=== PATIENT | female | born 1965 | race Caucasian/White ===

== ENCOUNTER 2020-09-24 17:25 | Outpatient (REF) | payer OTHER, SELFPAY ==
[2020-09-26 10:35] LABS: COVID-19 RT-PCR Result NEGATIVE (Negative)
== END 2020-09-24 17:45 ==
LOC: NCHCN 17:25
PROVIDERS: PCP Internal Medicine; Visit Provider Internal Medicine
DX: Z20.828 Contact with and (suspected) exposure to other viral communicable diseases (principal)
CPT/HCPCS: U0003

== ENCOUNTER 2021-10-07 01:23 | Outpatient (CLI) | payer OTHER, SELFPAY ==
[2021-10-07 11:48] LABS: Source Nasal/Nares
[2021-10-07 14:08] LABS: COVID-19 PCR Negative (Negative)
== END 2021-10-07 01:24 | disposition home or self-care (01) ==
PROVIDERS: PCP Internal Medicine; Visit Provider Surgery
DX: Z20.822 Contact with and (suspected) exposure to COVID-19 (principal); Z01.818 Encounter for other preprocedural examination
CPT/HCPCS: 87635

== ENCOUNTER 2021-11-23 16:57 | Outpatient (REF) | payer OTHER, SELFPAY ==
[2021-11-23 21:42] LABS: Abs Immature Grans 0.01 10^3/uL (0.0-0.06); Absolute Basophil Count 0.02 10^3/uL (0.0-0.2); Absolute Eosinophil Count 0.04 10^3/uL (0.0-0.7); Absolute Lymphocyte Count 2.27 10^3/uL (1.2-3.4); Absolute Monocyte Count 0.46 10^3/uL (0.1-0.8); Absolute Neutrophil Count 3.12 10^3/uL (1.2-6.7); Basophils % 0.3; Eosinophils % 0.7; HCT 37.8 % (36.0-46.0); HGB 12.6 g/dL (11.2-15.7); Immature Grans % 0.2; Lymphocytes % 38.3; MCH 30.4 pg (27.0-33.0); MCHC 33.3 % (32.0-36.0); MCV 91.3 fL (80-95); MPV 11.5 fL (8.0-11.0); Monocytes % 7.8; Neutrophils % 52.7; Nucleated RBC 0 %; Platelet Count 212 10^3/uL (130-400); RBC 4.14 10^6/uL (3.93-5.22); RDW 12.3 % (11.7-14.6); WBC 5.92 10^3/uL (4.4-10.8)
[2021-11-23 22:17] LABS: ALT 43 U/L (14-59); AST 23 U/L (15-37); Albumin 4.1 g/dL (3.4-5.0); Alkaline Phosphatase 83 U/L (46-116); Anion Gap 8.9 mmol/L (3-11); BUN 21 mg/dL (7-18); Bilirubin, Total 0.3 mg/dL (0.2-1.0); CO2 26.1 mmol/L (21.0-32.0); Chloride 106 mmol/L (98-107); Estimated GFR 57.15 (mL/min/1.73m2); Glucose 139 mg/dL (74-106); Potassium 3.6 mmol/L (3.5-5.1); Sodium 141 mmol/L (136-145); Total Protein 7.3 g/dL (6.4-8.2); Vitamin B12 500 pg/mL (193-986)
[2021-11-25 10:37] LABS: HIV-1/2 Ag & Ab Screen Negative (Negative)
[2021-11-25 13:36] LABS: Hepatitis C Ab w Rflx HCV PCR Negative (Negative)
== END 2021-11-23 16:58 | disposition home or self-care (01) ==
LOC: NCHCN 16:57
PROVIDERS: PCP Internal Medicine; Visit Provider Family Medicine
DX: Z11.4 Encounter for screening for human immunodeficiency virus [HIV] (principal); Z11.59 Encounter for screening for other viral diseases; N39.0 Urinary tract infection, site not specified; R41.3 Other amnesia
CPT/HCPCS: 80053; 86803; 87077; 87389; 82607; 84443; 85025; 87086; 87186

== ENCOUNTER 2022-03-10 15:33 | Outpatient (REF) | payer OTHER, SELFPAY ==
--- NOTE | 2022-03-10 15:30 | PAPFT_PTH ---
PATIENT: Jewell Schmid LOC: [facility] U#:[id number] AGE/SX: 56/F ROOM: RE03/10/[address]: Fernanda Flores DO : 1965 BED: DIS: 03/10/2022 SPEC #: [id number] RECD: 03/10/22 16:54 STATUS: ARTIE REQ #: [id number] CHECO: 03/10/22 15:[address]: Fernanda Flores DEPT: [facility] Cytology RECD BY: Maria Elena Baldwin ENTERED: 03/10/22 16:54 SP TYPE: PAPFT OTHR DR: Anshu Yadav Tissues: 1 - CX/ENDOCX FOR PAP SMEARS Procedures: PAP THIN PREP/[facility] Screening HPV DNA PROBE Comments: [id number] (HPV 16 & 18/45)
== END 2022-03-10 15:34 | disposition home or self-care (01) ==
LOC: LBN 15:33
PROVIDERS: PCP Internal Medicine; Visit Provider Obstetrics & Gynecology
DX: Z12.4 Encounter for screening for malignant neoplasm of cervix (principal); Z11.51 Encounter for screening for human papillomavirus (HPV); R87.810 Cervical high risk human papillomavirus (HPV) DNA test positive
CPT/HCPCS: 88142; 87624

== ENCOUNTER → 2022-04-07 00:13 | Outpatient (CLI) | payer OTHER, SELFPAY ==
--- OUTSIDE RECORDS SUMMARY | 2022-04-07 00:15 | XMS_ITS | Encounter Summary ---
:1965 Author Organization [facility] Address [address] [place] [address] Care Team Providers Name Role Phone Anshu Yadav MD Primary Care Provider Encounter Details Date Type Department Care Team Description 06/12/2019 Hospital Encounter [facility] - Unknown, Jannet dunn [facility] [phone] [place] [address] (Work) [place] [address] Social History Tobacco Use Types Packs/Day Years Used Date Never Smoker Smokeless Tobacco: Never Used Alcohol Use Standard Drinks/Week Comments Yes 0 (1 standard drink = 0.6 oz pure alcoho l) rare Alcohol Habits Answer Date Recorded How often do you have a drink containing alcohol? Not asked How many drinks containing alcohol do you have on a typical Not asked day when you are drinking? How often do you have six or more drinks on one occasion? No t asked Comment: rare 03/07/2018 Sex Assigned at Date Recorded Not on file documented as of this encounter Medications at Time of Discharge Medication Sig Dispensed Refills Start Date End Date venlafaxine (EFFEXOR-XR) Take 75 mg by mouth 0 03/25/2022 75 mg XR capsule daily. documented as of this encounter Discharge Disposition Disposition Code Departure Means Destination Home or Self Long Term documented in this encounter Plan of Treatment Not on filedocumented as of this encounter Visit Diagnoses Not on filedocumented in this encounter Care Teams Advisory Intern Relationship Specialty Start Date End Date Anshu Yadav MD PCP - General 01/11/18 03/24/22 [address] [place], [place] [id number] documented as of this encounter
--- OUTSIDE RECORDS SUMMARY | 2022-04-07 00:15 | XMS_ITS | Encounter Summary ---
:1965 Author Organization [facility] Address [address] [place] [address] Care Team Providers Name Role Phone Anshu Yadav MD Primary Care Provider Encounter Details Date Type Department Care Team Description 10/14/2020 Results Only [facility] - [facility] Joe Portillo MD Lab - Main [place] [address] [facility] [address] [place] [address] [place], [place] [address] [phone] Social History Tobacco Use Types Packs/Day Years [...] on file documented as of this encounter Plan of Treatment Not on filedocumented as of this encounter Procedures Procedure Name Priority Date/Time Associated Comments Diagnosis FLU/COVID AYSHA(FLUVID) Routine 10/14/2020 14:25 Re sults for this EST procedure are i n the results section. COMPLETE BLOOD COUNT Routine 10/14/2020 14:00 Res ults for this WITH DIFFERENTIAL EST procedure are in (AUTO) the results section. TROPONIN I Routine 10/14/2020 14:00 Results for this EST procedure are i n the results section. D-DIMER Routine 10/14/2020 14:00 Results for this EST procedure are i n the results section. MAGNESIUM Routine 10/14/2020 14:00 Results for this EST procedure are i n the results section. COMPREHENSIVE Routine 10/14/2020 14:00 Results fo r this METABOLIC PANEL (CMP) EST proced ure are in the results section. documented in this encounter Results FLU/COVID AYSHA(FLUVID) (10/14/2020 14:25 EST) [facility] SARS-CoV-2 RT-PCR Not Detected [facility] Comment: [facility] The 2019 novel coronavirus (SARS-CoV-2) target nucleic acids are not detected. INFLUENZA A PCR - Negative [facility] INFLUENZA B PCR - Negative [facility] RSV PCR - [facility] Negative [facility] Specimen Narrative [facility] - 021 15:26 EST FLUVID PATIENT STATUS: A [facility] 1 FLUVID Performing Organization Address City/[facility]/ZIP Code Phon e Number [facility] [address] [phone] TROPONIN I (10/14/2020 14:00 EST) [facility] Troponin I <0.034 0.000 - [facility] (ng/mL) Comment: 0.034 ng/mL [facility] Interpretation comments: ??Cutoff for a positive troponin result is set at the 99th percentile of the upper reference limit. ??Elevated troponin must always be interpreted in the context of the clinical presentation. ?Serial troponin testing 3-6 hr from baseline is fav ored over relying on a single troponin level. ?? The results of this assay can be falsely lowered d ue to the consumption of Biotin. Specimen Performing Organization Address City/[facility] Code Phon e Number [facility] [address] [phone] D-DIMER (10/14/2020 14:00 EST) [facility] D-Dimer <150 <230 ng/mLDDU [facility] Comment: [facility]ENTER [facility] CUTOFF VALUE FOR THE EXCLUSION OF DVT and PE: 230 ng/mL D-dimer units. Any use of the age-adjusted cutoff value is a post-jared lytic modification of this FDA-approved test and is consider ed off-label use of the test result. [facility] Laboratory do es not have literature to support the validity of an age-adju sted cutoff for our specific assay. Specimen Narrative [facility] - 021 14:32 EST AOT: 10/14/20 1421: DIMER Performing Organization Address [facility] Phon e Number [facility] [address] [place] [address] MAGNESIUM (10/14/2020 14:00 EST) Pathologist Sig nature Magnesium 1.70 1.7 - 2.8 mg/dL [facility] Specimen Performing Organization Address [facility] Phon e Number [facility] [address] [place] [address] (ABNORMAL) COMPREHENSIVE METABOLIC PANEL (CMP) (10/14/2020 14:00 EST) ALBUMIN - [facility] 4.4 3.4 - 4.9 [facility] g/dL [facility] ALKALINE 78 38 - 126 U/L [facility] PHOSPHATASE [facility] BILIRUBIN TOTAL 0.4 0.2 - 1.3 [facility] mg/dL [facility] BUN - [facility] 19 10 - 26 mg/dL [facility] CALCIUM - [facility] 9.4 8.5 - 10.5 [facility] mg/dL [facility] Chloride 104 96 - 110 [facility] mmol/L [facility] CO2 Total 30 22 - 32 mEq/L [facility] CREATININE 0.84 0.52 - 1.04 [facility] mg/dL [facility] eGFR >60 [facility] Comment: [facility] Chronic renal impairment is defined as GFR <60 Multiply result by 1.210 for patients . eGFR calculated using the IDMS-traceable MDRD Study Equation. ??(effective 07/06/2014) Anion Gap 9 0 - 18 [facility] GLUCOSE - [facility] 130 (H) 70 - 100 [facility] mg/dL [facility] Potassium 4.0 3.5 - 5.0 [facility] mEq/L [facility] Sodium 143 136 - 145 [facility] mEq/L [facility] TOTAL PROTEIN - 7.3 6.2 - 8.2 [facility] gm/dL [facility] SGOT/AST - [facility] 29 14 - 36 U/L [facility] SGPT/ALT - [facility] 29 0 - 35 U/L [facility] Specimen Performing Organization Address City/State/ZIP Code Phon e Number [facility] [address] [place] [address] (ABNORMAL) COMPLETE BLOOD COUNT WITH DIFFERENTIAL (AUTO) (10/14/2020 14:00 EST) Pathologist Sig nature ABSOLUTE NEUTROPHIL 2.2 2.2 - 8.85 [facility] COUN - [facility] 10e3/uL [facility] BASO # - [facility] 0.04 0.01 - 0.11 [facility] 10e/uL [facility] BASO % - [facility] 1 0 - 2 % [facility] EOS # - [facility] 0.06 0.03 - 0.61 [facility] 10e3/ul [facility] EOS % - [facility] 1 0 - 5 % [facility] GRAN % - [facility] 48.6 40 - 80 % [facility] HEMATOCRIT - [facility] 40.4 34.9 - 44.4 % [facility] HEMOGLOBIN - [facility] 13.5 11.6 - 15.2 [facility] g/dl [facility] IG# - [facility] 0.01 0 - 0.7 10e3/uL [facility] IG% - [facility] 0.2 0 - 0.9 % [facility] LYMPH # - [facility] 1.9 1.09 - 3.3 [facility] 10e3/ul [facility] LYMPH% - [facility] 42.8 (H) 20 - 40 % [facility] MEAN CORPUSCULAR HGB 30.5 26.7 - 33.3 pg [facility] ME D - CV [facility] MEAN CORPUSCULAR HGB 33.4 32.1 - 35.9 [facility] CONC - [facility] g/dL [facility] MEAN CELL VOLUME - 91.4 81 - 98 fl [facility] MONO # - [facility] 0.3 0.1 - 0.8 [facility] 10e3/uL [facility] [facility] MONO% - [facility] 6.2 0 - 12 % [facility] PLATELET COUNT 207 141 - 377 [facility] 10e3/ul [place] [facility] RED BLOOD COUNT - 4.42 3.86 - 5.04 [facility] 10e3/ul [place] RED CELL DISTRI WIDTH 12.3 <14.7 % [facility] WHITE BLOOD COUNT - 4.5 4.0 - 12.4 [facility] 10e3/ul [facility]ENTER LAB Specimen Performing Organization Address City/State/ZIP Code Phon e Number [facility] [address] [place] [address] documented in this encounter Visit Diagnoses Not on filedocumented in this encounter Care Teams Superintendent Board Mill Relationship Specialty Start Date End Date Anshu Yadav MD PCP - General 01/11/18 03/24/22 [address] [place] [address] documented as of this encounter
--- OUTSIDE RECORDS SUMMARY | 2022-04-07 00:15 | XMS_ITS | Encounter Summary ---
:1965 Author Organization [facility] Address [address] [place] [address] Care Team Providers Name Role Phone Vanessa Almeida MD Primary Care Provider Tracey Monson Primary Care Provider Vanessa Almeida MD Primary Care Provider Encounter Details Date Type Department Care Team Description 05/23/2004 Results Only [facility] - Delmy Romero NP conversion [address] [place] [address] Social History Tobacco Use Types Packs/Day Years Used Date Never Assessed Sex Assigned at Date Recorded Not on file documented as of this encounter Plan of Treatment Not on filedocumented as of this encounter Procedures Procedure Name Priority Date/Time Associated Diagnosis Comme nts CYTOPATHOLOGY Routine 05/23/2004 0:00 EDT Results for this procedure are i n the results section . documented in this encounter Results CYTOPATHOLOGY (05/23/2004 0:00 EDT) Pathology Report: CYTOPATHOLOGY REPORT [facility] Reports generated via electronic interface contain grabiel ginal data; however they are lacking the format of the original re port. Caution should be taken when reading/interpreting unfo rmatted reports. Name: ? CLAUDIO LARA ? Accession #: ? [id number] : ? 1965 (Age: 38) ??F ?Collect Date: ? 05/05 Location: ? [facility] ? Receive Date : ? 05/24/2004 Provider: ?DELMY CHAO AUTO VINYL TOP INSTALLER Copy to: ? Specimen/Source: ?ThinPrep Pap Test, Cervix/ Endocervix Last Menstrual Period: ? 05/06/04 Previous Gynecologic Pathology: ? LSIL: 11/04/02 HPV: 05/29/03 Infection History: ? Bacterial vaginosis ? SPECIMEN ADEQUACY ? Satisfactory for Evaluation - transformation zone component present GENERAL CATEGORIZATION ? Negative for Intraepithelial Lesion or Malignan cy INTERPRETATION ? Shift in ramirez present suggestive of bacterial vaginosis. ? Document reviewed and electronically signed by: ? URIAH Duarte(ASCP) ? Report Date: ??05/30/2004 11:19 End of Report Specimen Performing Organization Address City/State/ZIP Code Phon e Number [facility] [address] [place] [address] SERVICES [facility] [address] [place] [address] documented in this encounter Visit Diagnoses Not on filedocumented in this encounter Care Teams Brattice Builder Relationship Specialty Start Date End Date Vanessa Almeida MD PCP - General 05/14/09 08/24/15 [address] [place] [address] Tracey Monson FNP PCP - General 04/13/09 05/13/09 [address] [place] [address] Vanessa Almeida MD PCP - General 04/07/09 04/12/09 [address] [place] [address] documented as of this encounter
--- OUTSIDE RECORDS SUMMARY | 2022-04-07 00:15 | XMS_ITS | Encounter Summary ---
:1965 Author Organization [facility] Address [address] [place] [address] Care Team Providers Name Role Phone Vanessa Almeida MD Primary Care Provider Tracey Monson Primary Care Provider Vanessa Almeida MD Primary Care Provider Encounter Details Date Type Department Care Team Description 05/29/2003 Results Only [facility] - Cody Feng MD conversion [address] [place], [place] [phone] Social History Tobacco Use Types Packs/Day Years Used Date Never Assessed Sex Assigned at Date Recorded Not on file documented as of this encounter Plan of Treatment Not on filedocumented as of this encounter Procedures Procedure Name Priority Date/Time Associated Comments Diagnosis HPV DETECTION, HIGH Routine 05/29/2003 15:30 Resu lts for this RISK TYPES EDT procedure are i n the results section. CYTOPATHOLOGY Routine 05/29/2003 0:00 Results for this EDT procedure are i n the results section. documented in this encounter Results HUMAN PAPILLOMA VIRUS DNA TEST (05/29/2003 15:30 EDT) Specimen Description Cervix, ThinPrep [facility] Result Positive for one or more of HPV types 16,18,31,33,35,39,45,51,52,56,58,59, or 68. These [facility] Camacho KAPLNAEN high/intermediate risk HPV t ypes are associated with dysplasia and some cervical cancers. LAB Report Status Final [facility] [id number] [facility] Specimen Performing Organization Address City/State/ZIP Code Phon e Number [facility] [address] [place] [address] SERVICES [facility] [address] [place] [phone] CYTOPATHOLOGY (05/29/2003 0:00 EDT) Pathology Report: CYTOPATHOLOGY REPORT [facility] Reports generated via electronic interface contain grabiel ginal data; however they are lacking the format of the original re port. Caution should be taken when reading/interpreting unfo rmatted reports. Name: ? CLAUDIO LARA ? Accession #: ? [id number] : ? 1965 (Age: 37) ??F ?Collect Date: ? 05/05 Location: ? [facility] ? Receive Date : ? 06/02/2003 Provider: ?CODY BUENO MD Copy to: ? Specimen/Source: ?ThinPrep Pap Test, Cervix/ Endocervix Last Menstrual Period: ? 05/08/03 Previous Gynecologic Pathology: ? ASC-US: 11/03 Other: ? Additional clinical information: Dysmenorrhea HPVDX - HPV testing requested regardless of diag nosis on current ThinPrep Pap test. ? SPECIMEN ADEQUACY ? Satisfactory for Evaluation - transformation zone component present GENERAL CATEGORIZATION ? Negative for Intraepithelial Lesion or Malignan cy INTERPRETATION ? Reactive cellular ninfa nges associated with inflammation present (includes repair). ? Document reviewed and electronically signed by: ? Kelsie Vides MD ? Report Date: ??06/09/2003 16:25 End of Report Specimen Performing Organization Address City/State/ZIP Code Phon e Number [facility] [address] [place] [phone] SERVICES [facility] [address] [place] [address] documented in this encounter Visit Diagnoses Not on filedocumented in this encounter Care Teams Wet Process Miller Head Assistant Relationship Specialty Start Date End Date Vanessa Almeida MD PCP - General 05/14/09 08/24/15 [address] [place] [address] Tracey Monson FNP PCP - General 04/13/09 05/13/09 [address] [place] [address] Vanessa Almeida MD PCP - General 04/07/09 04/12/09 [address] [place] [address] documented as of this encounter
--- OUTSIDE RECORDS SUMMARY | 2022-04-07 00:15 | XMS_ITS | Encounter Summary ---
:1965 Author Organization [facility] Address [address] [place] [address] Care Team Providers Name Role Phone Vanessa Almeida MD Primary Care Provider Unknown, Provider Primary Care Provider Anshu Yadav MD Primary Care Provider Encounter Details Date Type Department Care Team Description 08/24/2015 Historical Results [facility] - Salvador Blackwell MD Only [facility] Radiology Resul ts [address] [facility] [address] [place] [phone] Social History Tobacco Use Types Packs/Day Years Used Date Never Assessed Sex Assigned at Date Recorded Not on file documented as of this encounter Plan of Treatment Not on filedocumented as of this encounter Procedures Procedure Name Priority Date/Time Associated Diagnosis Comme nts XR CHEST 2 VIEWS 08/24/2015 9:11 EST Resu lts for this procedure are i n the results section. documented in this encounter Results XR CHEST 2 VIEWS (08/24/2015 9:11 EST) Specimen Narrative [facility] RADI[facility] - 08/24/2015 9:15 EST ? EXAM: RADIOLOGY/CHEST (PA ?? LAT) ?EX. D/ (811) ? CLINICAL INFORMATION: ? CHEST PAIN ? Indication: Chest pain. Shortness of breath. ? Comparison: None. ? Technique: Sitting upright AP and lateral views. ? Findings: The cardiomediastinal s ilhouette and pulmonary vasculature ? are within normal limits. The mariza gs are clear. No pleural effusion or ? pneumothorax is seen. ? Impression: No acute process. ? REPORT SIGNED IN OTHER VENDOR SYSTEM 08/24/2015 ?Reported B y: Tino Gregory MD ? CC: ? Transcribed Date/Time: 08/24/2015 (914) ? Hydroelectric Plant Electrician: ? Printed Date/Time: 02/12/2019 (08 58) ? PAGE 1 ? Nuvia d Report ? Procedure Note Tino Gregory MD - 07/09/2019 EXAM: RADIOLOGY/CHEST (PA LAT) EX. D/ (811) CLINICAL INFORMATION: CHEST PAIN Indication: Chest pain. Shortness of br eath. Comparison: None. Technique: Sitting upright AP and later al views. Findings: The cardiomediastinal silhoue tte and pulmonary vasculature are within normal limits. The lungs are clear. No pleural effusion or pneumothorax is seen. Impression: No acute process. REPORT SIGNED IN OTHER VENDOR SYSTEM 08/24/2015 Reported By: Tino Gregory MD CC: Transcribed Date/Time: 08/24/2015 (914 ) Hydroelectric Plant Electrician: Printed Date/Time: 02/12/2019 (7658) PAGE 1 Signed Report Performing Organization Address City/State/ZIP Code Phon e Number [facility] documented in this encounter Visit Diagnoses Not on filedocumented in this encounter Care Teams Breaker Mechanic Relationship Specialty Start Date End Date Vanessa Almeida MD PCP - General 05/14/09 08/24/15 [address] [place] [address] Unknown, MD Anna PCP - General 08/25/15 01/10/18 Anshu Yadav MD PCP - General 01/11/18 03/24/22 [address] [place] [address] documented as of this encounter
--- OUTSIDE RECORDS SUMMARY | 2022-04-07 00:15 | XMS_ITS | Encounter Summary ---
:1965 Author Organization [facility] Address [address] [place] [address] Care Team Providers Name Role Phone Vanessa Almeida MD Primary Care Provider Encounter Details Date Type Department Care Team Description 08/24/2015 Hospital Encounter [facility] - Unknown, Jannet dunn [facility] [phone] [place] [address] (Work) [place] [address] Social History Tobacco Use Types Packs/Day Years Used Date Never Assessed Sex Assigned at Date Recorded Not on file documented as of this encounter Discharge Disposition Disposition Code Departure Means Destination Home or Self Alf documented in this encounter Plan of Treatment Not on filedocumented as of this encounter Visit Diagnoses Not on filedocumented in this encounter Care Teams High School Professional Relationship Specialty Start Date End Date Vanessa Almeida MD PCP - General 05/14/09 08/24/15 [address] [place] [address] documented as of this encounter
--- OUTSIDE RECORDS SUMMARY | 2022-04-07 00:15 | XMS_ITS | Encounter Summary ---
:1965 Author Organization [facility] Address [address] [place] [address] Care Team Providers Name Role Phone Unknown, Provider Primary Care Provider Anshu Yadav MD Primary Care Provider Encounter Details Date Type Department Care Team Description 01/10/2018 Results Only [facility] Elayne Donald MD [phone] [address] [facility] [address] [place] [address] (Wo rk) Social History Tobacco Use Types Packs/Day Years Used Date Never Assessed Sex Assigned at Date Recorded Not on file documented as of this encounter Plan of Treatment Not on filedocumented as of this encounter Procedures Procedure Name Priority Date/Time Associated Diagnosis Comme nts PAP TEST- RESULT Routine 01/10/2018 0:00 EDT Resu lts for this ONLY procedure are i n the results section. documented in this encounter Results PAP TEST- RESULT ONLY (01/10/2018 0:00 EDT) Pathology Report: CYTOPATHOLOGY REPORT [facility] Reports generated via electronic interface contain grabiel ginal data; SERVICES however they are lacking the format of the original re port. Caution should be taken when reading/interpreting unfo rmatted reports. Name: ? CLAUDIO SCHMID ? Accession #: ? [id number] ? : ? 1965 (Age: 52) ??F ?Collect Date: ? 01/10/2018 ? Location: ? [facility] ? Receive Date: ? 01/12/20 18 ? Provider: ELAYNE DONALD MD Copy to: ANSHU YADAV MD ? Final Report SPECIMEN ADEQUACY ? Satisfactory for Evaluation - transformation zone component present GENERAL CATEGORIZATION ? Negative for Intraepithelial Lesion or Malignan cy ?? Menstrual/ Status: ??Post Menopausal Infection History: Pos for HPV Specimen/Source: ??Pap Test, Cervix, ThinPrep Imaging System with manual evaluation Document reviewed and electronically signed by: ? URIAH Child(ASCP) ? Report ??Date: 01/18/2018 16:56 HPV with Pap Test ? Date Ordered: ? 01/18/2018 ? Status: ?? Signed Out ?Date Complete: ? 01/22/2018 ? By: ??Sy stem Interface ? Date Reported: ? 01/22/2018 ? Interpretation RESULT: POSITIVE FOR HIGH OR INTERMEDIATE RISK HPV. E6 OR E7 mRNA from one or more types of HPV types 16,1 8,31, 33,35,39,45,51,52,56,58,59,66, and 68 is detected by cork tipper mediated amplification. High and intermediate risk HPV types are associated wi th most squamous intraepithelial lesions and cervical can cers. Comments Document reviewed and electronically signed by: ? System Interface ? Report date: 01/22/2018 By the signature above, the attending physician certif ies that he/she has personally conducted a gross and/or microscopic examin ation of the described specimens and rendered or confirmed the above diagnosi s. End of Report Specimen Performing Organization Address City/State/ZIP Code Phon e Number [facility] [address] [place] [address] SERVICES documented in this encounter Visit Diagnoses Not on filedocumented in this encounter Care Teams Scaffold Erector Relationship Specialty Start Date End Date Unknown, Provider, PCP - General 08/25/15 01/10/18 Anshu Yadav MD PCP - General 01/11/18 03/24/22 [address] [place], [place] [phone] documented as of this encounter
--- OUTSIDE RECORDS SUMMARY | 2022-04-07 00:15 | XMS_ITS | Encounter Summary ---
:1965 Author Organization [facility] Address [address] [place] [address] Care Team Providers Name Role Phone Anshu Yadav MD Primary Care Provider Perez Larkin MD Primary Care Provider Encounter Details Date Type Department Care Team Description 09/24/2020 Lab Requisition [facility] Outr Resulting Lab, Pathology & Laboratory Provider [facility] [address] [place], [place] [id number] Social History Tobacco Use Types Packs/Day Years [...] Procedure Name Priority Date/Time Associated Comments Diagnosis DO NOT ORDER Today 09/24/2020 10:30 Results for this STANDALONE - BROAD EST procedure are in COVID TEST the results section. COVID-19 TESTING Routine 09/24/2020 10:30 Results for this EST procedure are i n the results section. documented in this encounter Results DO NOT ORDER STANDALONE - BROAD COVID TEST (09/24/2020 10:30 EST) COVID-19 rt-PCR NEGATIVE Negative [facility] Result Comment: LABORATORY 2019-novel Coronavirus (2019 -nCoV) not detected by the qRT-PCR assay. Consider testing for other respiratory viruses or re-collecting for 2019-nCoV testing. Note: Optimum timing for peak viral levels du ring infections caused by 20 -nCoV have not been determined. Collection of multiple specimens from the same patient may be necessary to detect the virus. Limitations Positive results are indicat von of active infection with SARS-CoV-2 but do not rule out bacterial infection or co-infection with other viruses. The agent detected may not be the definite cause of diseas e. In addition, detection of viral RNA may not indicate the presence of infectious virus or that SARS-CoV-2 is the causative agent for clinical symptoms. Negative results do not prec lude SARS-CoV-2 infection and should not be used as the sole basis for patient management decisions. Negative results must be combined with clinical observations, patient his tory, and epidemiological in formation. False negative results may also occur if amplification inhibitors are present in the specimen or if inadequate numbers of organisms are present in the specimen. Op timum specimen types and fabiola ing for peak viral levels during infections caused by SARS-CoV-2 have not been fully determined. Collection of multiple specimens (types and time points) from the same patient may be necessary to detect the virus. The test was validated for u with upper respiratory specimens obtained via nasopharyngeal or oropharyngeal swabs in VTM, UTM, M4, M5, M6, saline, and MTM media. The performance of this test has not be en established for other spe cimens. Specimens collected using other FDA recommended Specimen Collection Materials listed in the FDA COVID-19 [employer] communication (November 27, 2019) are pr ocessed with the caveat that they were not all validated for use with this test and the result must be interpreted in this context. Furthermore, a false negative results may occur if a specimen is improperly collected, transported or handled. If the virus mutates in the RT-PCR target region, SARS-CoV-2 may not be detected or may be detected less predictably. Inhibitors or other types of interference may produce a false negative result. An interference study evaluating the effect of common cold medications was not performed. This test is not FDA-cleared but its performance characteristics were established by our CLIA-certified, CAP-accredited, high complexity laboratory in accordance with CLIA regulations, [employer] of [employer] (CAP) guidel darryl (Nov 20, 2019), and FDA guidance (Nov 01, 2019). This test is only for use un mona the Food and Drug Administration's Emergency Use Authorization. Specimen Swab - Entire nasopharynx (body structur e) Performing Organization Address City/State/ZIP Code Phon e Number [facility] [place], [place] COVID-19 TESTING (09/24/2020 10:30 EST) COVID-19 rt-PCR NEGATIVE Negative [facility] Result Comment: LABORATORY 2019-novel Coronavirus (2019 -nCoV) not detected by the qRT-PCR assay. Consider testing for other respiratory viruses or re-collecting for 2019-nCoV testing. Note: Optimum timing for peak viral levels du ring infections caused by 20 -nCoV have not been determined. Collection of multiple specimens from the same patient may be necessary to detect the virus. Limitations Positive results are indicat von of active infection with SARS-CoV-2 but do not rule out bacterial infection or co-infection with other viruses. The agent detected may not be the definite cause of diseas e. In addition, detection of viral RNA may not indicate the presence of infectious virus or that SARS-CoV-2 is the causative agent for clinical symptoms. Negative results do not prec lude SARS-CoV-2 infection and should not be used as the sole basis for patient management decisions. Negative results must be combined with clinical observations, patient his tory, and epidemiological in formation. False negative results may also occur if amplification inhibitors are present in the specimen or if inadequate numbers of organisms are present in the specimen. Op timum specimen types and fabiola ing for peak viral levels during infections caused by SARS-CoV-2 have not been fully determined. Collection of multiple specimens (types and time points) from the same patient may be necessary to detect the virus. The test was validated for u se with upper respiratory specimens obtained via nasopharyngeal or oropharyngeal swabs in VTM, UTM, M4, M5, M6, saline, and MTM media. The performance of this test has not be en established for other spe cimens. Specimens collected using other FDA recommended Specimen Collection Materials listed in the FDA COVID-19 [employer] communication (November 27, 2019) are pr ocessed with the caveat that they were not all validated for use with this test and the result must be interpreted in this context. Furthermore, a false negative results may occur if a specimen is improperly collected, transported or handled. If the virus mutates in the RT-PCR target region, SARS-CoV-2 may not be detected or may be detected less predictably. Inhibitors or other types of interference may produce a false negative result. An interference study evaluating the effect of common cold medications was not performed. This test is not FDA-cleared but its performance characteristics were established by our CLIA-certified, CAP-accredited, high complexity laboratory in accordance with CLIA regulations, [employer] of [employer] an [employer]ologists (CAP) guidel darryl (Nov 20, 2019), and FDA guidance (Nov 01, 2019). This test is only for use un mona the Food and Drug Administration's Emergency Use Authorization. Performing Lab [facility] Specimen Swab Performing Organization Address City/State/ZIP Code Phon e Number [facility] [address] [place] [address] SERVICES [facility] [place], [place] documented in this encounter Visit Diagnoses Not on filedocumented in this encounter Care Teams Instructional Technology Instructor Relationship Specialty Start Date End Date Anshu Yadav MD PCP - General 01/11/18 03/24/[address] [place] [id number] Perez Larkin MD PCP - General Emergency Medicine 03/25/[address] [place] [address] documented as of this encounter
--- OUTSIDE RECORDS SUMMARY | 2022-04-07 00:15 | XMS_ITS | Encounter Summary ---
:1965 Author Organization [facility] Address [address] [place] [address] Care Team Providers Name Role Phone Anshu Yadav MD Primary Care Provider Encounter Details Date Type Department Care Team Description 03/05/[address] [facility] ENT - Anshu Yadav MD [place] [address] [place] [address] [place] [address] [phone] Social History Tobacco Use Types Packs/Day Years Used Date Never Assessed Sex Assigned at Date Recorded Not on file documented as of this encounter Plan of Treatment Not on filedocumented as of this encounter Visit Diagnoses Not on filedocumented in this encounter Historical Medications This list may reflect changes made after this encounter. Medication Sig Dispensed Refills Start Date End Date venlafaxine (EFFEXOR-XR) Take 75 mg by mouth 0 03/25/2022 75 mg XR capsule daily. added in this encounter Care Teams Content Designer Relationship Specialty Start Date End Date Anshu Yadav MD PCP - General 01/11/18 03/24/22 [address] [place], [place] [phone] documented as of this encounter
--- OUTSIDE RECORDS SUMMARY | 2022-04-07 00:15 | XMS_ITS | Encounter Summary ---
:1965 Author Organization [facility] Address [address] [place] [address] Care Team Providers Name Role Phone Anshu Yadav MD Primary Care Provider Encounter Details Date Type Department Care Team Description 03/14/2018 Hospital Encounter [facility] - Unknown, Jannet dunn [facility] [phone] [place] [address] (Work) [place] [address] Social History Tobacco Use Types Packs/Day Years [...] Code Departure Means Destination Home or Self [facility] documented in this encounter Plan of Treatment Not on filedocumented as of this encounter Visit Diagnoses Not on filedocumented in this encounter Care Teams Poured Pipe Maker Relationship Specialty Start Date End Date Anshu Yadav MD PCP - General 01/11/18 03/24/22 [address] [place], [place] [phone] documented as of this encounter
--- OUTSIDE RECORDS SUMMARY | 2022-04-07 00:15 | XMS_ITS | Encounter Summary ---
:1965 Author Organization [facility] Address [address] [place] [address] Care Team Providers Name Role Phone Anshu Yadav MD Primary Care Provider Perez Larkin MD Primary Care Provider Encounter Details Date Type Department Care Team Description 09/07/2020 Results Only Imaging [facility] - Perez Larkin MD [facility] Radiology Resul ts [address] [place] [address] [place], [place] [id number] Social History Tobacco Use Types Packs/Day Years [...] Priority Date/Time Associated Diagnosis Comme nts XR RIBS RIGHT WITH 09/07/2020 20:58 Resul ts for this PA CHEST EST procedure are i n the results section. documented in this encounter Results XR RIBS RIGHT WITH PA CHEST (09/07/2020 20:58 EST) Specimen Narrative [facility] - 09/07/2020 20:58 EST ? EXAM: RADIOLOGY/RIBS RT 3V W/ PA CHEST ?EX. D/ (1621) ? CLINICAL INFORMATION: ? R07.81 RIB PAIN, RIGHT SIDE ? PROCEDURE INFORMATION: ? Exam: XR Right Ribs with PA Chest , 3 Views ? Exam date and time: 09/07/2020 4:21 PM ? Age: 55 years old ? Clinical indication: R07.81 rib p ain, right side ? TECHNIQUE: ? Imaging protocol: XR Right ribs 3 views with PA chest. ? COMPARISON: ? CR ([id number], CHEST, CHEST PA) 1 2:25 PM ? FINDINGS: ? Lungs: Clear lungs. ? Pleural space: No pneumothorax. N o sizable pleural effusion. ? Heart/Mediastinum: No cardiomegal y. ? Bones/joints: No acute rib fractu re. ? IMPRESSION: ? 1. Clear lungs. ? 2. No acute rib fracture. ? REPORT SIGNED IN OTHER VENDOR SYSTEM 09/07/2020 ?Reported B y: Casandra Joaquin MD ? CC: ? Transcribed Date/Time: 09/07/2020 (2057) ? [employer] Hrms Developer: ? Printed Date/Time: 09/07/2020 () ? PAGE 1 ? Nuvia d Report ? Procedure Note Jemal Guajardo MD - 09/07/2020 EXAM: RADIOLOGY/RIBS RT 3V W/ PA CHEST EX. D/ (1621) CLINICAL INFORMATION: R07.81 RIB PAIN, RIGHT SIDE PROCEDURE INFORMATION: Exam: XR Right Ribs with PA Chest, 3 Vi ews Exam date and time: 09/07/2020 4:21 PM Age: 55 years old Clinical indication: R07.81 rib pain, r ight side TECHNIQUE: Imaging protocol: XR Right ribs 3 views with PA chest. COMPARISON: CR ([id number], CHEST, CHEST PA) 019 2:25 PM FINDINGS: Lungs: Clear lungs. Pleural space: No pneumothorax. No siza ble pleural effusion. Heart/Mediastinum: No cardiomegaly. Bones/joints: No acute rib fracture. IMPRESSION: 1. Clear lungs. 2. No acute rib fracture. REPORT SIGNED IN OTHER VENDOR SYSTEM 09/07/2020 Reported By: Casandra Joaquin MD CC: Transcribed Date/Time: 09/07/2020 (2057 ) [employer] Hrms Developer: Printed Date/Time: 09/07/2020 (2057) PAGE 1 Signed Report Performing Organization Address City/State/ZIP Code Phon e Number [facility] documented in this encounter Visit Diagnoses Not on filedocumented in this encounter Care Teams It Technical Specialist Relationship Specialty Start Date End Date Anshu Yadav MD PCP - General 01/11/18 03/24/[address] [place] [id number] Perez Larkin MD PCP - General Emergency Medicine 03/25/[address] [place] [address] documented as of this encounter
--- OUTSIDE RECORDS SUMMARY | 2022-04-07 00:15 | XMS_ITS | Encounter Summary ---
:1965 Author Organization [facility] Address [address] [place] [address] Care Team Providers Name Role Phone Vanessa Almeida MD Primary Care Provider Tracey Monson Primary Care Provider Vanessa Almeida MD Primary Care Provider Encounter Details Date Type Department Care Team Description 05/01/2006 Results Only [facility] - Jocelyn Jarrell od, ITZEL Nunez [address] [place] [phone] (Wo rk) Social History Tobacco Use Types Packs/Day Years Used Date Never Assessed Sex Assigned at Date Recorded Not on file documented as of this encounter Plan of Treatment Not on filedocumented as of this encounter Procedures Procedure Name Priority Date/Time Associated Diagnosis Comme nts CYTOPATHOLOGY Routine 05/01/2006 0:00 EDT Results for this procedure are i n the results section . documented in this encounter Results CYTOPATHOLOGY (05/01/2006 0:00 EDT) Pathology Report: CYTOPATHOLOGY REPORT [facility] Reports generated via electronic interface contain grabiel ginal data; however they are lacking the format of the original re port. Caution should be taken when reading/interpreting unfo rmatted reports. Name: ? CLAUDIO LARA ? Accession #: ? [id number] : ? 1965 (Age: 40) ??F ?Collect Date: ? 04/04 Location: ? [facility] ? Receive Date : ? 05/02/2006 Provider: ?ÁNGELA LEON WINE STEWARD/STEWARDESS Copy to: ? Specimen/Source: ? ThinPrep Pap Test, Cervix/Endocervix, processed on [employer] ThinPrep Imaging System, with manual evaluation Last Menstrual Period: ? 03/23/06 Previous Gynecologic Pathology: ? LSIL: 11/04/02 HPV: 05/29/03 Other: ? HPVA - HPV testing requested if ASC-US on the current ThinPrep Pap test. ? SPECIMEN ADEQUACY ? Satisfactory for Evaluation - transformation zone component present GENERAL CATEGORIZATION ? Negative for Intraepithelial Lesion or Malignan cy INTERPRETATION ? Reactive cellular ninfa nges associated with inflammation present (includes repair). ? Document reviewed and electronically signed by: ? RICARDO PETIT MD [facility] ? Report Date: ??05/04/2006 17:48 End of Report Specimen Performing Organization Address City/State/ZIP Code Phon e Number [facility] [address] [place] [address] SERVICES [facility] [address] [place] [address] documented in this encounter Visit Diagnoses Not on filedocumented in this encounter Care Teams Flue Lining Dipper Relationship Specialty Start Date End Date Vanessa Almeida MD PCP - General 05/14/09 08/24/15 [address] [place] [phone] Tracey Monson FNP PCP - General 04/13/09 05/13/09 [address] [place] [address] Vanessa Almeida MD PCP - General 04/07/09 04/12/09 [address] [place] [address] documented as of this encounter
--- OUTSIDE RECORDS SUMMARY | 2022-04-07 00:15 | XMS_ITS | Encounter Summary ---
:1965 Author Organization [facility] Address [address] [place] [address] Care Team Providers Name Role Phone Perez Larkin MD Primary Care Provider Reason for Visit Reason Comments Ear Problem bilateral clogged ears Encounter Details Date Type Department Care Team Description 03/25/2022 Walk-In [facility] - [facility] Denver Woo, Bilateral impacted cerumen (Primary Dx); [facility] PA-C Encounter for vaccination [address] [place] [address] [phone] [place] [address] Social History Tobacco Use Types Packs/Day Years [...] on file documented as of this encounter Last Filed Vital Signs Vital Sign Reading Time Taken Comments Blood Pressure 129/77 03/25/2022 1150 EDT Pulse 68 03/25/2022 1150 EDT Temperature 36.8 ??C (98.3 ??F) 03/25/2022 1150 EDT Respiratory Rate 16 03/25/2022 1150 EDT Oxygen Saturation 99% 03/25/2022 1150 EDT Inhaled Oxygen Concentration - - Weight - - Height - - Body Mass Index - - documented in this encounter Patient Instructions Patient InstructionsDenver Woo PA-C - 03/25/2022 12:15 EDT Images from the original note were not included. You still had a bit of earwax in your ears. Unfortunately your ears did not appear irritated from earlier flushing today. I think trying to flush again or attempting to disimpact manualy would cause more discomfort than it is worth. I would recommend picking up a product called Debrox. This can softenand dissolve earwax blockages. You can use this twice a day for about 4 days. If your ears still remain problematic after using the Debrox we could reattempt earwax removal again. [facility] Patient Instructions Earwax Blockage: Care Instructions Your Care Instructions Earwax is a natural substance that protects the ear canal. Normally, earwax drains from the ears anddoes not cause problems. Sometimes earwax builds up and hardens. Earwax blockage (also called cerumen impaction) can cause some loss of hearing and pain. When wax is tightly packed, you will need to have your doctor remove it. Follow-up care is a miranda part of your treatment and safety. Be sure to make and go to all appointments, and call your doctor if you are having problems. It's also a good idea to know your test results and keep a list of the medicines you take. How can you care for yourself at home? ?? Do not try to remove earwax with cotton swabs, fingers, or other objects. This can make the blockage worse and damage the eardrum. ?? If your doctor recommends that you try to remove earwax at home: ? Soften and loosen the earwax with warm mineral oil. You also can try hydrogen peroxide mixed with an equal amount of room temperature water. Place 2 drops of the fluid, warmed to body temperature, inthe ear two times a day for up to 5 days. ? Once the wax is loose and soft, all that is usually needed to remove it from the ear canal is a gentle, warm shower. Direct the water into the ear, then tip your head to let the earwax drain out. Dryyour ear thoroughly with a behavioral sciences department chair set on low. Hold the dryer several inches from your ear. ? If the warm mineral oil and shower do not work, use an [id number] wax softener. Read and follow all instructions on the label. After using the wax softener, use an ear syringe to gently flush the ear. Make sure the flushing solution is body temperature. Cool or hot fluids in the ear can cause dizziness. When should you call for help? Call your doctor now or seek immediate medical care if: ? Pus or blood drains from your ear. ? Your ears are ringing or feel full. ? You have a loss of hearing. Watch closely for changes in your health, and be sure to contact your doctor if: ? You have pain or reduced hearing after 1 week of home treatment. ? You have any new symptoms, such as nausea or balance problems. Where can you learn more? Go to https://[email or web address] Language Services.GameLayers/Gewara or log into your [employer] account at [email or web address].[email or web address] Enter Q495 in the search box to learn more about Earwax Blockage: Care Instructions. Current as of: March 03, 2021?Content Version: 13.2 ?? 5019-1756 kingsky. Care instructions adapted under license by [facility]. If you have questions about a medical condition or this instruction, always ask your healthcare professional. kingsky disclaims any warranty or liability for your use of this information. documented in this encounter Progress Notes Denver Woo PA-C - 03/25/2022 1215 EDT [facility] Express Care Chief Complaint(s): Chief Complaint Patient presents with ??? Ear Problem bilateral clogged ears Assessment & Plan: 1. Bilateral impacted cerumen 2. Encounter for vaccination TDAP VACCINE =>7YO IM Nursing staff installed hydrogen peroxide solution and subsequently attempted ear lavage. Only modest amount of cerumen was removed. After procedure she was examined by provider. Left TM was now visible, a scant amount of cerumen remained in external auditory meatus. TM intact, no irritation or erythema. Right TM remained occluded. She did have some mild erythema and pinpoint bleeding in R ear canal.Discussed with patient continuing to reduce cerumen impaction or trying Debrox at home. Recommended the latter as I felt given irritation in right ear further work today would be counterproductive. Patient was in agreement. Recommended Debrox and give instructions for use. She will scrap picker OTC. If earstill clogged after completion of therapy will attempt to remove earwax again. Tetanus vaccine was provided per request. New Prescriptions No medications on file HPI: Patient presents with sensation of ears being clogged bilaterally. Mild sensation of disequilibrium.No pain or discharge. Denies frequent use of cotton swabs or putting other objects in ears. She would also like Tdap vaccination as her last one was over 10 years ago. ROS: Review of Systems HENT: Negative for ear discharge and ear pain. Objective: Vitals and nursing notes reviewed Examination: BP 129/77 (BP Cuff Location: Right arm, BP Patient Position: Sitting, BP Cuff Sizes: Adult, small) Pulse 68 Temp 36.8 ??C (98.3 ??F) (Oral) Resp 16 SpO2 99% Physical Exam Constitutional: General: She is not in acute distress. HENT: Right Ear: External ear normal. Left Ear: External ear normal. Ears: Comments: No pain with manipulation of external ear or palpation over tragus bilateral Neurological: Mental Status: She is alert. Data reviewed with patient (current and past results): Problem list, medication, allergy list reviewed This note may be in part documented using voice dictation software. Please forgive any errors or omissions that may result from use of dictation. Eleni Edwards RN - 03/25/2022 1215 EDT Ceruminosis is noted. Some wax is removed by syringing, warm water and hydrogen peroxide. Patient tolerated well. Home guidance on wax removal given. Patient verbalized understanding. Beth Smith RN - 03/25/2022 1215 EDT Opthalmic Tech administered Tdap vaccine IM in L deltoid as per provider order. Pt tolerated well with no issues. Pt given VIS. Observed for 15 mins after injection. BETH SPENCER RN. 03/25/22 14:15 leni Smith RN - 03/25/2022 1215 EDT CC/HPI: Bilateral clogged ears. No pain. Brigid is worse than right. 200 mg ibuprofen this morning at 7 am Covid Screening: In the last 72 hours, has the patient had: New or unusual cough, shortness of breath, new nasal congestion, sore throat, fever, chills, body aches, or new loss of taste or smell without a reasonable alternative diagnosis*? (If yes, assign to ARC)- no In the past 10 days, has the patient had a positive Covid test OR a confirmed close Covid exposure (<6ft for > 15mins in 24hr period)? (if yes, assign to ARC, regardless of vaccination status)- no *may be determined by RN or in discussion with available provider (ELECTROTYPER's and CCA's can defer to Charge Nurse to complete triage when appropriate) PCP: Perez Larkin documented in this encounter Plan of Treatment Not on filedocumented as of this encounter Visit Diagnoses Diagnosis Bilateral impacted cerumen - Primary Impacted cerumen Encounter for vaccination documented in this encounter Orders Immunization/Injection Count Last Ordered Date First O rdered Date TDAP VACCINE =>7YO IM 1 03/25/2022 documented in this encounter Care Teams Welfare Interviewer Relationship Specialty Start Date End Date Perez Larkin MD PCP - General Emergency Medicine 03/25/22 [address] [place] [address] documented as of this encounter
--- OUTSIDE RECORDS SUMMARY | 2022-04-07 00:15 | XMS_ITS | Encounter Summary ---
:1965 Author Organization [facility] Address [address] [place] [address] Care Team Providers Name Role Phone Perez Larkin MD Primary Care Provider Reason for Visit Reason Comments Foot Injury Left Finger Injury left index Encounter Details Date Type Department Care Team Description 03/25/2022 Walk-In [facility] - [facility] Denver Woo, Acute left ankle pain [facility] PA-[facility] (Primary Dx) [address] [place] [address] [phone] [place] [address] Social History Tobacco Use Types Packs/Day Years [...] Time Taken Comments Blood Pressure 129/77 03/25/2022 1132 EDT Pulse 82 03/25/2022 1132 EDT Temperature 36.8 ??C (98.3 ??F) 03/25/2022 1132 EDT Respiratory Rate 16 03/25/2022 1132 EDT Oxygen Saturation 98% 03/25/2022 1132 EDT Inhaled Oxygen Concentration - - Weight - - Height - - Body Mass Index - - documented in this encounter Patient Instructions Patient InstructionsMoDenver king PA-C - 03/25/2022 11:45 EDT There were no broken bones your foot or ankle. You likely have minor soft tissue swelling which willresolve with time. Icing and [id number] pain relievers such as ibuprofen or Tylenol can be helpful. No restrictions were noted on your Workmen's Comp. form documented in this encounter Progress Notes [place] Woo PA-C - 03/25/2022 1145 EDT [facility] Express Care Chief Complaint(s): Chief Complaint Patient presents with ??? Foot Injury Left ??? Finger Injury left index Assessment & Plan: 1. Acute left ankle pain XR ANKLE LEFT 3 OR MORE VIEWS XR FOOT LEFT 3 OR MORE VIEWS ibuprofen (MOTRIN) tablet 400 mg No fractures or dislocations appreciated on radiographs. Suspect soft tissue injury. Offered walkingboot and/or crutches which was declined. No activity limitations are needed. Recommended ice and judicious use of NSAIDs as needed for pain relief. New Prescriptions No medications on file HPI: Visit today is for a workmen's comp claim. Chief complaint is pain in talar area of left ankle and proximal dorsal aspect of foot. Symptoms began about 8 days ago after dropping a heavy piece of metal on her foot. She estimates object weighed 100 pounds. She was working for [employer]. Incident occurred 03/17/22. She was able to work the rest of the day after taking about a 20-minute break. Painand swelling have continued since initial incident. She has taken ibuprofen with moderate relief of symptoms. Pain exacerbated with weightbearing or flexion/extension of foot. She endorses mild ache toentire leg when pain is at its apurva. Otherwise discomfort is localized. Initially had some diffuse tingling in toes of left foot however this resolved after few days. She not currently having any paresthesia or loss of sensation distal to site of injury. No associated injuries from above incident. ROS: Review of Systems Neurological: Negative for tingling, sensory change and focal weakness. Objective: Vitals and nursing notes reviewed Examination: BP 129/77 (BP Cuff Location: Right arm, BP Patient Position: Sitting, BP Cuff Sizes: Adult, small) Pulse 82 Temp 36.8 ??C (98.3 ??F) (Oral) Resp 16 SpO2 98% Physical Exam Constitutional: General: She is not in acute distress. Cardiovascular: Pulses: Normal pulses. Musculoskeletal: Comments: Faint yellow bruising noted over proximal left forefoot and anterior ankle. Full active ROM, some discomfort with flexion and extension of ankle. Area was moderately painful to palpation. Nocrepitus or step-off deformity appreciated. No pain with palpation over calf or petty. Achilles tendon intact. Able to bear weight, gait was unremarkable. Sensation intact distal to ankle, cap refill less than 2 seconds, dorsal pedal and posterior tibial pulses 2+ Skin: General: Skin is warm and dry. Capillary Refill: Capillary refill takes less than 2 seconds. Neurological: General: No focal deficit present. Mental Status: She is alert. Sensory: No sensory deficit. XR FOOT LEFT 3 OR MORE VIEWS Narrative: PROCEDURE INFORMATION: Exam: XR Left Foot Exam date and time: 03/25/2022 12:44 PM Age: 56 years old Clinical indication: Pain in left ankle and joints of left foot; Injury or trauma; Other: Droped heavy object on top of foot, eval for FX; Blunt trauma; Additional info: Droped heavy object on top of foot, eval for frx TECHNIQUE: Imaging protocol: Radiologic exam of the Left foot. Views: 3 or more views. COMPARISON: No relevant prior studies available. FINDINGS: Bones/joints: Normal. No fracture or dislocation. No arthropathic change. Soft tissues: Normal. Impression: No acute findings. THIS DOCUMENT HAS BEEN ELECTRONICALLY SIGNED BY HOOD NASH MD FOR ANY QUESTIONS OR CONCERNS REGARDING THIS REPORT PLEASE CALL [facility] AT [phone] XR ANKLE LEFT 3 OR MORE VIEWS Narrative: PROCEDURE INFORMATION: Exam: XR Left Ankle Exam date and time: 03/25/2022 12:45 PM Age: 56 years old Clinical indication: Pain in left ankle and joints of left foot; Additional info: Droped heavy object on top of foot, eval for frx TECHNIQUE: Imaging protocol: Radiologic exam of the Left ankle. Views: 3 or more views. COMPARISON: CR XR FOOT LEFT 3 OR MORE VIEWS 25/03/2022 12:44 FINDINGS: Bones/joints: Ankle mortise joint is intact with no malleolar fracture. Soft tissues: Normal. No significant swelling. Impression: Normal ankle. THIS DOCUMENT HAS BEEN ELECTRONICALLY SIGNED BY HOOD NASH MD FOR ANY QUESTIONS OR CONCERNS REGARDING THIS REPORT PLEASE CALL [facility] AT [phone] Data reviewed with patient (current and past results): Problem list, medications, allergies, radiographs reviewed This note may be in part documented using voice dictation software. Please forgive any errors or omissions that may result from use of dictation. Eleni Edwards RN - 03/25/2022 1145 EDT Took 200 mg ibuprofen at 7 am this morning and has been icing often. No previous left foot injury On 03/17/22 metal shard from rail injured her left index finger, which bled well. Last Tdap 06/25/2012 Diamond Smith RN - 03/25/2022 1145 EDT CC/HPI: WC--Pt reports L foot injury a week ago this past Sunday. Dropped a 100lb steel rail on foot. Walking on it, but very painful. No improvement. Covid Screening: In the last 72 hours, has the patient had: New or unusual cough, shortness of breath, new nasal congestion, sore throat, fever, chills, body aches, or new loss of taste or smell without a reasonable alternative diagnosis*? (If yes, assign to ARC)- NO In the past 10 days, has the patient had a positive Covid test OR a confirmed close Covid exposure (<6ft for > 15mins in 24hr period)? (if yes, assign to ARC, regardless of vaccination status)- NO *may be determined by RN or in discussion with available provider (SINTER FEEDER's and CCA's can defer to Charge Nurse to complete triage when appropriate) PCP: Anshu Yadav documented in this encounter Plan of Treatment Not on filedocumented as of this encounter Procedures Procedure Name Priority Date/Time Associated Diagnosis Comme nts XR ANKLE LEFT 3 OR STAT 03/25/2022 12:52 Acute left ankle R esults for this MORE VIEWS EDT pain procedure are i n the results section. XR FOOT LEFT 3 OR STAT 03/25/2022 12:52 Acute left ankle Re sults for this MORE VIEWS EDT pain procedure are i n the results section. documented in this encounter Results XR ANKLE LEFT 3 OR MORE VIEWS (03/25/2022 12:52 EDT) Anatomical Region Laterality Modality Lower Extremities, Ankle Left Computed Radiog laisha Specimen Impressions [facility] - 03/25/2022 13:06 EDT Normal ankle. THIS DOCUMENT HAS BEEN ELECTRONICALLY SI GNED BY HOOD NASH MD FOR ANY QUESTIONS OR CONCERNS REGARDING THIS REPORT PLEASE CALL [facility] AT [phone] Narrative [facility] - 03/25/2022 13:06 EDT PROCEDURE INFORMATION: Exam: XR Left Ankle Exam date and time: 03/25/2022 12:45 PM Age: 56 years old Clinical indication: Pain in left ankle and joints of left foot; Additional info: Droped heavy object on top of foot, eval for frx TECHNIQUE: Imaging protocol: Radiologic exam of the Left ankle. Views: 3 or more views. COMPARISON: CR XR FOOT LEFT 3 OR MORE VIEWS 25/03/20 12:44 FINDINGS: Bones/joints: Ankle mortise joint is int act with no malleolar fracture. Soft tissues: Normal. No significant swe lling. Procedure Note Hood Nash MD - 03/25/2022 PROCEDURE INFORMATION: Exam: XR Left Ankle Exam date and time: 03/25/2022 12:45 PM Age: 56 years old Clinical indication: Pain in left ankle and joints of left foot; Additional info: Droped heavy object on top of foot, eval for frx TECHNIQUE: Imaging protocol: Radiologic exam of the Left ankle. Views: 3 or more views. COMPARISON: CR XR FOOT LEFT 3 OR MORE VIEWS 25/03/20 12:44 FINDINGS: Bones/joints: Ankle mortise joint is int act with no malleolar fracture. Soft tissues: Normal. No significant swe lling. IMPRESSION Normal ankle. THIS DOCUMENT HAS BEEN ELECTRONICALLY SI GNED BY HOOD NASH MD FOR ANY QUESTIONS OR CONCERNS REGARDING THIS REPORT PLEASE CALL [facility] AT [phone] Performing Organization Address City/State/ZIP Code Phon e Number [facility] XR FOOT LEFT 3 OR MORE VIEWS (03/25/2022 12:52 EDT) Anatomical Region Laterality Modality Lower Extremities Left Computed Radiography Specimen Impressions [facility] [place] - 03/25/2022 13:07 EDT No acute findings. THIS DOCUMENT HAS BEEN ELECTRONICALLY SI GNED BY HOOD NASH MD FOR ANY QUESTIONS OR CONCERNS REGARDING THIS REPORT PLEASE CALL [facility] AT [phone] Narrative [facility] - 03/25/2022 13:07 EDT PROCEDURE INFORMATION: Exam: XR Left Foot Exam date and time: 03/25/2022 12:44 PM Age: 56 years old Clinical indication: Pain in left ankle and joints of left foot; Injury or trauma; Other: Droped heavy ob ject on top of foot, eval for FX; Blunt trauma; Additional info: D roped heavy object on top of foot, eval for frx TECHNIQUE: Imaging protocol: Radiologic exam of the Left foot. Views: 3 or more views. COMPARISON: No relevant prior studies available. FINDINGS: Bones/joints: Normal. ??No fracture or d islocation. ??No arthropathic change. Soft tissues: Normal. Procedure Note Hood Nash MD - 03/25/2022 PROCEDURE INFORMATION: Exam: XR Left Foot Exam date and time: 03/25/2022 12:44 PM Age: 56 years old Clinical indication: Pain in left ankle and joints of left foot; Injury or trauma; Other: Droped heavy ob ject on top of foot, eval for FX; Blunt trauma; Additional info: D roped heavy object on top of foot, eval for frx TECHNIQUE: Imaging protocol: Radiologic exam of the Left foot. Views: 3 or more views. COMPARISON: No relevant prior studies available. FINDINGS: Bones/joints: Normal. No fracture or dis location. No arthropathic change. Soft tissues: Normal. IMPRESSION No acute findings. THIS DOCUMENT HAS BEEN ELECTRONICALLY SI GNED BY HOOD NASH MD FOR ANY QUESTIONS OR CONCERNS REGARDING THIS REPORT PLEASE CALL [facility] AT [phone] Performing Organization Address City/State/ZIP Code Phon e Number [facility] documented in this encounter Visit Diagnoses Diagnosis Acute left ankle pain - Primary documented in this encounter Administered Medications Inactive Administered Medications - up to 3 most recent administrations Medication Order MAR Action Action Date Dose Rate Site ibuprofen (MOTRIN) tablet 400 mg Given 03/25/2022 13:05 EDT 400 mg 400 mg, oral, Once, 1 dose, On 03/25/22 at 1300, Routine documented in this encounter Discontinued Medications Medication Sig Discontinue Reason Start Date End Date venlafaxine Take 75 mg by Discontinued by another (EFFEXOR-XR) 75 mg XR mouth daily. clinician capsule documented as of this encounter Historical Medications This list may reflect changes made after this encounter. Medication Sig Dispensed Refills Start Date End Date ibuprofen (MOTRIN) 200 mg Take 200 mg by mouth 0 tablet every 6 hours. citalopram (CELEXA) 20 mg Take 20 mg by mouth 0 0 03/15/2022 tablet daily. As ordered added in this encounter Care Teams Agribusiness Internship Relationship Specialty Start Date End Date Perez Larkin MD PCP - General Emergency Medicine 03/25/22 [address] [place] [address] documented as of this encounter
--- OUTSIDE RECORDS SUMMARY | 2022-04-07 00:15 | XMS_ITS | Encounter Summary ---
:1965 Author Organization [facility] Address [address] [place] [address] Care Team Providers Name Role Phone Anshu Yadav MD Primary Care Provider Encounter Details Date Type Department Care Team Description 06/12/2019 Results Only [facility] - [facility] Walter Adkins, Lab - Main [place] [address] [place], [place] [id number] [place] [phone] (Wo rk) Social History Tobacco Use Types [...] Procedure Name Priority Date/Time Associated Comments Diagnosis COMPLETE BLOOD COUNT Routine 06/12/2019 13:35 Res ults for this WITH DIFFERENTIAL EDT procedure are in (AUTO) the results section. TROPONIN I Routine 06/12/2019 13:35 Results for this EDT procedure are i n the results section. MAGNESIUM Routine 06/12/2019 13:35 Results for this EDT procedure are i n the results section. COMPREHENSIVE Routine 06/12/2019 13:35 Results fo r this METABOLIC PANEL (CMP) EDT proced ure are in the results section. documented in this encounter Results TROPONIN I (06/12/2019 13:35 EDT) Pathologist [facility] Troponin I <0.034 0.000 [facility] (ng/mL) Comment: 0.034 ng/mL [facility] Interpretation comments: ??Cutoff for [...] consumption of Biotin. Specimen Performing Organization Address City/[facility] Phon e Number [facility] [address] [phone] [facility] MAGNESIUM (06/12/2019 13:35 EDT) Pathologist [facility] nature Magnesium 1.80 1.7 - 2.8 mg/dL [facility] Specimen Performing Organization Address [facility]/ZIP [facility] Phon e Number [facility] [address] [place] [address] [facility] (ABNORMAL) COMPREHENSIVE METABOLIC PANEL (CMP) (06/12/2019 13:35 EDT) Pathologist [facility] ALBUMIN - [facility] 4.4 3.4 - 4.9 [facility] g/dL [facility] ALKALINE 59 38 - 126 U/L [facility] PHOSPHATASE [facility] BILIRUBIN TOTAL 0.5 0.2 - 1.3 [facility] mg/dL [facility] BUN - [facility] 13 10 - 26 mg/dL [facility] CALCIUM - [facility] 9.3 8.5 - 10.5 [facility] mg/dL [facility] Chloride 102 96 - 110 [facility] mmol/L [facility] CO2 Total 27 22 - 32 mEq/L [facility] CREATININE 0.82 0.52 - 1.04 [facility] mg/dL [facility] eGFR >60 [facility] Comment: [facility] Chronic renal impairment is defined as GFR <60 Multiply result by 1.210 for patients . eGFR calculated using the IDMS-traceable MDRD Study Equation. ??(effective 07/06/2014) Anion Gap 12 0 - 18 [facility] GLUCOSE - [facility] 156 (H) 70 - 100 [facility] mg/dL [facility] Potassium 3.8 3.5 - 5.0 [facility] mEq/L [facility] Sodium 141 136 - 145 [facility] mEq/L [facility] TOTAL PROTEIN - 7.5 6.2 - 8.2 [facility] gm/dL [facility] SGOT/AST - [facility] 24 14 - 36 U/L [facility] SGPT/ALT - [facility] 20 9 - 52 U/L [facility] Specimen Performing Organization Address City/State/ZIP Code Phon e Number [facility] [address] [place], [place] [phone] [place] [address] LAB (ABNORMAL) COMPLETE BLOOD COUNT WITH DIFFERENTIAL (AUTO) (06/12/2019 13:35 EDT) Pathologist Sig nature ABSOLUTE NEUTROPHIL 3.0 2.2 - 8.85 [facility] COUN - [facility] 10e3/uL [facility] BASO # - [facility] 0.04 0.01 - 0.11 [facility] 10e/uL [facility] BASO % - [facility] 1 0 - 2 % [facility] EOS # - [facility] 0.01 (L) 0.03 - 0.61 [facility] 10e3/ul [facility] EOS % - [facility] 0 0 - 5 % [facility] GRAN % - [facility] 55.8 40 - 80 % [facility] HEMATOCRIT - [facility] 38.4 34.9 - 44.4 % [facility] HEMOGLOBIN - [facility] 13.0 11.6 - 15.2 [facility] g/dl [facility] IG# - CV 0.02 0 - 0.7 10e3/uL [facility] IG% - [facility] 0.4 0 - 0.9 % [facility] LYMPH # - [facility] 2.0 1.09 - 3.3 [facility] 10e3/ul [facility] LYMPH% - [facility] 36.1 20 - 40 % [facility] MEAN CORPUSCULAR HGB 31.0 26.7 - 33.3 pg [facility] ME D - CV [facility] MEAN CORPUSCULAR HGB 33.9 32.1 - 35.9 [facility] CONC - [facility] g/dL [facility] MEAN CELL VOLUME - 91.6 81 - 98 fl [facility] MONO # - [facility] 0.4 0.1 - 0.8 [facility] 10e3/[facility] LAB MONO% - [facility] 6.8 0 - 12 % [facility] PLATELET COUNT 229 141 - 377 [facility] 10e3/ul [facility] RED BLOOD COUNT - 4.19 3.86 - 5.04 [facility] 10e3/ul [facility] RED CELL DISTRI WIDTH 12.1 <14.7 % [facility] WHITE BLOOD COUNT - 5.4 4.0 - 12.4 [place] [id number]/[facility] Specimen Performing Organization Address City/State/ZIP Code Phon e Number [facility] [address] [place] [address] [facility] documented in this encounter Visit Diagnoses Not on filedocumented in this encounter Care Teams Gas Fitter Relationship Specialty Start Date End Date Anshu Yadav MD PCP - General 01/11/18 03/24/22 [address] [place], [place] [phone] documented as of this encounter
--- OUTSIDE RECORDS SUMMARY | 2022-04-07 00:15 | XMS_ITS | Encounter Summary ---
:1965 Author Organization [facility] Address [address] [place] [address] Care Team Providers Name Role Phone Vanessa Almeida MD Primary Care Provider Tracey Monson Primary Care Provider Vanessa Almeida MD Primary Care Provider Encounter Details Date Type Department Care Team Description 11/01/2001 Results Only [facility] - Cody Feng MD conversion [address] [place] [address] Social History Tobacco Use Types Packs/Day Years Used Date Never Assessed Sex Assigned at Date Recorded Not on file documented as of this encounter Plan of Treatment Not on filedocumented as of this encounter Procedures Procedure Name Priority Date/Time Associated Diagnosis Comme nts CYTOPATHOLOGY Routine 11/01/2001 0:00 EST Results for this procedure are i n the results section . documented in this encounter Results CYTOPATHOLOGY (11/01/2001 0:00 EST) Pathology Report: CYTOPATHOLOGY REPORT [facility] Reports generated via electronic interface contain grabiel ginal data; however they are lacking the format of the original re port. Caution should be taken when reading/interpreting unfo rmatted reports. Name: ? CLAUDIO LARA ? Accession #: ? [id number] : ? 1965 (Age: 36) ??F ?Collect Date: ? 03/0 09/2001 Location: ? [facility] ? Receive Date : ? 11/04/2001 Provider: ?CODY BUENO MD Copy to: ? Specimen/Source: ?Conventional Pap Test, Cer vix/Endocervix Last Menstrual Period: ? 10/10/01 Other: ? Additional clinical information: Dysmenorrhea, pelvic pain ? SPECIMEN ADEQUACY ? Satisfactory for Evaluation - transformation zone component present GENERAL CATEGORIZATION ? Negative for Intraepithelial Lesion or Malignan cy ? Document reviewed and electronically signed by: ? Ivette Bangura, SCT(ASCP) ? Report Date: ??11/07/2001 11:27 End of Report Specimen Performing Organization Address City/State/ZIP Code Phon e Number [facility] [address] [place] [address] SERVICES [facility] [address] [place] [address] documented in this encounter Visit Diagnoses Not on filedocumented in this encounter Care Teams Social Sciences Instructor Relationship Specialty Start Date End Date Vanessa Almeida MD PCP - General 05/14/09 08/24/15 [address] [place] [phone] Tracey Monson FNP PCP - General 04/13/09 05/13/09 [address] [place], [place] [phone] Vanessa Almeida MD PCP - General 04/07/09 04/12/09 [address] [place] [phone] documented as of this encounter
--- OUTSIDE RECORDS SUMMARY | 2022-04-07 00:15 | XMS_ITS | Encounter Summary ---
:1965 Author Organization [facility] Address [address] [place] [address] Care Team Providers Name Role Phone Anshu Yadav MD Primary Care Provider Perez Larkin MD Primary Care Provider Encounter Details Date Type Department Care Team Description 11/24/2021 Lab Requisition [facility] Outr Resulting Lab, Pathology & Laboratory Provider [facility] [address] [place], [place] [phone] Social History Tobacco Use Types Packs/Day Years [...] Procedure Name Priority Date/Time Associated Comments Diagnosis HIV 1/2 ANTIGEN AND Routine 11/23/2021 16:25 Resu lts for this ANTIBODY, 4TH EDT procedure are in GENERATION the results section. documented in this encounter Results HIV 1/2 ANTIGEN AND ANTIBODY, 4TH GENERATION (11/23/2021 16:25 EDT) HIV 1 and 2 NegativeComment: If Negative [facility] Antibody/p24 acute HIV-1 LABORATORY Antigen, 4th infection is SERVICES Generation suspected in a high risk patient, submit plasma specimen for HIV-1 RNA quantitation test. Specimen Blood - Venous blood (substance) Narrative [facility] SERVICES - 11/25/2021 10:33 EDT Fourth Generation assay performed on the Siemens Cellmemoreaur XPT. Performing Organization Address City/State/ZIP Code Phon e Number [facility] [address] [place] [address] SERVICES documented in this encounter Visit Diagnoses Not on filedocumented in this encounter Care Teams Rehabilitation Program Manager Relationship Specialty Start Date End Date Anshu Yadav MD PCP - General 01/11/18 03/24/22 [address] [place] [address] Perez Larkin MD PCP - General Emergency Medicine 03/25/[address] [place] [address] documented as of this encounter
--- OUTSIDE RECORDS SUMMARY | 2022-04-07 00:15 | XMS_ITS | Encounter Summary ---
:1965 Author Organization [facility] Address [address] [place] [address] Care Team Providers Name Role Phone Unknown, Provider Primary Care Provider Anshu Yadav MD Primary Care Provider Encounter Details Date Type Department Care Team Description 09/04/2016 Historical Results Only [facility] - Fredis Lenz [facility] Radiology Resul ts [address] [place] [address] [place] [address] [phone] Social History Tobacco Use Types Packs/Day Years Used Date Never Assessed Sex Assigned at Date Recorded Not on file documented as of this encounter Plan of Treatment Not on filedocumented as of this encounter Procedures Procedure Name Priority Date/Time Associated Diagnosis Comme nts XR CERVICAL SPINE 09/04/2016 9:43 EST Res ults for this 2-3 VIEWS procedure are i n the results section. documented in this encounter Results XR CERVICAL SPINE 2-3 VIEWS (09/04/2016 9:43 EST) Specimen Narrative [facility] - 09/04/2016 9:43 EST ? EXAM: RADIOLOGY/CERVICAL SPINE 3 VIEWS OR EX. D/ (0910) ? CLINICAL INFORMATION: ? WHIPLASH INJURY ? EXAM: ? XR Cervical Spine, 2 or 3 View s. ? CLINICAL HISTORY: ? The patient is a 51 years old, ??female; Pain; Neck pain; ? Additional info: Whiplash injury Facility exam id and ? description: Cs3 cervical spine 3 views or less ? TECHNIQUE: ? Frontal and lateral views of t tammy cervical spine. ? COMPARISON: ? No relevant prior studies diomedes perez. ? FINDINGS: ? Vertebrae: ??No acute fracture s. ??The cervical spine alignment ? is normal. ??Chronic degenerative vertebral body endplate ? osteophytosis with diminished dis c height at C5-C7. ? Disc spaces: ??See above. ? Soft tissues: ??Unremarkable. ? IMPRESSION: ? 1. ??No acute fractures. ? 2. ??The cervical spine alignment is normal. ? 3. ??Chronic degenerative vertebr al body endplate osteophytosis ? with diminished disc height at C5 -C7. ? REPORT SIGNED IN OTHER VENDOR SYSTEM 09/04/2016 ?Reported B y: Rob Hahn MD ? CC: ? Transcribed Date/Time: 09/04/2016 (0943) ? Director Of Guidance: ? Printed Date/Time: 02/14/2019 () ? PAGE 1 ? Nuvia d Report ? Procedure Note Rob Hahn T - 07/09/2019 EXAM: RADIOLOGY/CERVICAL SPINE 3 VIEWS OR EX. D/ (0910) CLINICAL INFORMATION: WHIPLASH INJURY EXAM: XR Cervical Spine, 2 or 3 Views. CLINICAL HISTORY: The patient is a 51 years old, female; Pain; Neck pain; Additional info: Whiplash injury Facili ty exam id and description: Cs3 cervical spine 3 views or less TECHNIQUE: Frontal and lateral views of the cervic al spine. COMPARISON: No relevant prior studies available. FINDINGS: Vertebrae: No acute fractures. The cerv ical spine alignment is normal. Chronic degenerative vertebr al body endplate osteophytosis with diminished disc heig ht at C5-C7. Disc spaces: See above. Soft tissues: Unremarkable. IMPRESSION: 1. No acute fractures. 2. The cervical spine alignment is norm al. 3. Chronic degenerative vertebral body endplate osteophytosis with diminished disc height at C5-C7. REPORT SIGNED IN OTHER VENDOR SYSTEM 09/04/2016 Reported By: Rob Hahn MD CC: Transcribed Date/Time: 09/04/2016 (0943 ) Director Of Guidance: Printed Date/Time: 02/14/2019 (7425) PAGE 1 Signed Report Performing Organization Address City/State/ZIP Code Phon e Number [facility] documented in this encounter Visit Diagnoses Not on filedocumented in this encounter Care Teams Land Appraiser Relationship Specialty Start Date End Date Unknown, MD Anna PCP - General 08/25/15 01/10/18 Anshu Yadav MD PCP - General 01/11/18 03/24/[address] [place] [id number] documented as of this encounter
--- OUTSIDE RECORDS SUMMARY | 2022-04-07 00:15 | XMS_ITS | Clinical Summary ---
:1965 Author Organization [facility] Address [address] [place] [address] Care Team Providers Name Role Phone Perez Larkin MD Primary Care Provider Allergies Active Allergy Reactions Severity Noted Date Comments Pregabalin Other (See Comments) Low 03/05/2018 DID NOT FEEL WELL Nitrofurantoin Other (See Comments) 03/05/2018 Pt do es not recall Monohyd/M-Cryst Methylphenidate Hcl Other (See Comments) Low 03/05/2018 Excess energy Gabapentin Other (See Comments) Low 03/05/2018 Did not feel well Bupropion Hcl Other (See Comments) 03/05/2018 Does n ot recall Medications Medication Sig Dispensed Refills Start Date End Date Status citalopram Take 20 mg by 0 03/15/2022 Acti ve (CELEXA) 20 mg mouth daily. tablet As ordered ibuprofen Take 200 mg 0 Active (MOTRIN) 200 mg by mouth tablet every 6 hours. venlafaxine Take 75 mg by 0 Disc ontinued (EFFEXOR-XR) 75 mouth daily. 2 ( Discontinued by mg XR capsule anothe r clinician) Hospital, Clinic, or Other Ordered Dose Route Frequency Start Date End Date Status Facility Administered Medication ibuprofen (MOTRIN) tablet 400 mg ORAL Once 03/25/2022 Ended 400 mgIndications: Acute left ankle pain Active Problems No known active problems Encounters Date Type Specialty Care Team Description 03/25/2022 [facility] [place] [facility], Bilateral im pacted cerumen (Primary Dx); PA-C Encounter for v accination 03/25/2022 [facility] [place] [facility], Acute left a nkle pain PA-C (Primary Dx) 03/13/2022 Lab Requisition Clinical Laboratory Fernanda Flores nter for other general examina tion from Last 3 Months Immunizations Name Administration Dates Next Due Tdap Vaccine =>7YO IM 03/25/2022 Surgical History Surgery Date Site/Laterality Comments APPENDECTOMY Family History Medical History Relation Name Comments Cancer Maternal Grandfather Cancer Maternal Grandmother Cancer Paternal Grandfather Thyroid Disease Paternal Grandfather Cancer Paternal Grandmother Hearing Loss Son Relation Name Status Comments Maternal Grandfather Maternal Grandmother Paternal Grandfather Paternal Grandmother Son Social History Tobacco Use Types Packs/Day Years [...] Assigned at Date Recorded Not on file Last Filed Vital Signs Vital Sign Reading Time Taken Comments Blood Pressure 129/77 03/25/2022 1150 EDT Pulse 68 03/25/2022 1150 EDT Temperature 36.8 ??C (98.3 ??F) 03/25/2022 1150 EDT Respiratory Rate 16 03/25/2022 1150 EDT Oxygen Saturation 99% 03/25/2022 1150 EDT Inhaled Oxygen Concentration - - Weight 71.2 kg (157 lb) 03/07/2018 0838 EDT Height 171.5 cm (5' 7.5) 03/07/2018 0838 EDT Body Mass Index 24.23 03/07/2018 0838 EDT Plan of Treatment Health Maintenance Due Date Last Done Comments COVID-19 Vaccine (#1) 02/24/1966 Hepatitis C Screen Completed 11/23/2021 Procedures Procedure Name Priority Date/Time Associated Comments Diagnosis XR ANKLE LEFT 3 OR MORE STAT 03/25/2022 12:52 Acute left an kle Results for this VIEWS EDT pain procedure are i n the results section. XR FOOT LEFT 3 OR MORE STAT 03/25/2022 12:52 Acute left ank le Results for this VIEWS EDT pain procedure are i n the results section. PAP TEST Today 03/10/2022 15:30 Encounter for other Resu lts for this EDT general examination procedur e are in the results section. HPV GENOTYPES 16 AND Today 03/10/2022 15:30 Encounter for ot her Results for this 18/45 EDT general examination procedur e are in the results section. HUMAN PAPILLOMAVIRUS Today 03/10/2022 15:30 Encounter for ot her Results for this (HPV) DETECTION-HIGH EDT general examination procedure are in RISK TYPES the results section. from Last 3 Months Results XR ANKLE LEFT 3 OR MORE VIEWS (03/25/2022 12:52 EDT) Anatomical Region Laterality Modality Lower Extremities, Ankle Left Computed Radiog laisha Specimen Impressions [facility] - 03/25/2022 13:06 EDT Normal ankle. THIS DOCUMENT HAS BEEN ELECTRONICALLY SI GNED BY HOOD NASH MD FOR ANY QUESTIONS OR CONCERNS REGARDING THIS REPORT PLEASE CALL [facility] AT [phone] Narrative [facility] - 03/25/2022 13:06 [...] REGARDING THIS REPORT PLEASE CALL [facility] AT [phone] Performing Organization Address City/State/ZIP Code Phon e Number [facility] XR FOOT LEFT 3 OR MORE VIEWS (03/25/2022 12:52 EDT) Anatomical Region Laterality Modality Lower Extremities Left Computed Radiography Specimen Impressions [facility] [place] - 03/25/2022 13:07 EDT No acute findings. THIS DOCUMENT HAS BEEN ELECTRONICALLY SI GNED BY HOOD NASH MD FOR ANY QUESTIONS OR CONCERNS REGARDING THIS REPORT PLEASE CALL [facility] AT [phone] Narrative [facility] - 03/25/2022 13:07 [...] REGARDING THIS REPORT PLEASE CALL [facility] AT [phone] Performing Organization Address City/State/ZIP Code Phon e Number [facility] PAP TEST (03/10/2022 15:30 EDT) Specimens A. Cervix and/or [facility] Endocervix , ThinPrep CENTER Imaging System with LABORATORY Manual Evaluation SERVICES Specimen Adequacy Satisfactory for [facility] MEDICAL Evaluation - CENTER transformation zone LABORATORY component present SERVICES General Negative for [facility] Categorization intraepithelial CENTER lesion or malignancy LABORATORY SERVICES Descriptive Reactive cellular [facility] MEDICAL Diagnosis changes associated CENTER with inflammation LABORATORY present (includes SERVICES repair). Attestation By the signature below, the attending physician certifies that they have personally conducted a gross and/or microscopic [facility] Electronically examination of the described specimens and rendered or confirmed the above diagnosis. CENTER signed by LABORATORY Nilesh Walton MD on 022 at 1419 Clinical History See below [facility] SERVICES HPV The result for the Human Pap illomavirus (HPV) Detection-High Risk Types is Positive . E6 OR E7 mRNA from one or more types of HPV types 16,18,31,33,35,39,45,51,52,56,58,59,66, and 68 is detected by deleon [facility] scription mediated amplifica tion. High and intermediate risk HPV types are associated with most squamous intraepithelial lesions and cervical cancers. Testing was performed on specimen [id number] and CENTER was resulted on 03/17/2022 2317 EDT by RICHIE, LAB INSTRUMENT RESULTS IN LABORATORY SERVICES Genotyping 16 & The results for the HPV Chloe types 16 and 18/45 are Negative for the HPV16 RNA and Negative for the HPV18/45 RNA (HPV18/45). Testing was performed on specimen [id number] and was resulted on 03/23/2022 1355 EDT by RICHIE, LAB INSTRUMENT RESULTS IN [facility] 18/45 CENTER LABORATORY SERVICES Performing Lab [facility] Scanned Images [facility] SERVICES Specimen Pap Test - Cervix and/or Endocervix Performing Organization Address City/State/ZIP Code Phon e Number [facility] [address] [place] [address] SERVICES HPV GENOTYPES 16 AND 18/45 (03/10/2022 15:30 EDT) Pathologist Sig nature HPV16 RNA Negative Negative [facility] SERVICES HPV18/45 RNA Negative Negative [facility] (HPV18/45) LABORATORY SERVICES Specimen Pap Test - Cervix and/or Endocervix Performing Organization Address City/State/ZIP Code Phon e Number [facility] [address] [place] [address] SERVICES (ABNORMAL) HUMAN PAPILLOMAVIRUS (HPV) DETECTION-HIGH RISK TYPES (03/10/2022 15:30 EDT) Human Papillomavirus Positive (A)Comment: Negative [facility] (HPV) Detection-High E6 OR E7 mRNA from CENTER Types one or more types of LABORATORY HPV types SERVICES 16,18,31,33,35,39,45, 51,52,56,58,59,66, and 68 is detected by salesperson parts mediated amplification. High and intermediate risk HPV types are associated with most squamous intraepithelial lesions and cervical cancers. Specimen Pap Test - Cervix and/or Endocervix Performing Organization Address City/[facility]/ZIP Code Phon e Number [facility] [address] [place] [address] SERVICES from Last 3 Months Insurance Payer Benefit Plan Subscriber ID Effective Dates Phone Address Type / Group GENERIC GENERIC 2022-Prese Work Comp WORKERS COMP WORKERS COMP nt GL [employer] [facility] [id number] 2022-Prese [address] [place] [address] Jewell Schmid Personal/Family Self 1965 [phone]Home) [place] [address] Jewell Schmid Personal/Family Self 1965 [phone]) [place] [address] Jewell Schmid Personal/Family Self 1965 [phone]Home) [place] [address] Jewell Schmid Personal/Family Self 1965 [address] [place], [place] [address] Jewell Schmid Personal/Family Self 1965 [address] [place], [place] [address] Jewell Schmid Personal/Family Self 1965 [address] [place] [address] Jewell Schmid Personal/Family Self 1965 [phone] [address] [place] [address] Care Teams Emergency Medicine Physician Assistant Relationship Specialty Start Date End Date Perez Larkin MD PCP - General Emergency Medicine 03/25/22 [address] [place] [address]
--- OUTSIDE RECORDS SUMMARY | 2022-04-07 00:15 | XMS_ITS | Encounter Summary ---
:1965 Author Organization [facility] Address [address] [place] [address] Care Team Providers Name Role Phone Anshu Yadav MD Primary Care Provider Perez Larkin MD Primary Care Provider Encounter Details Date Type Department Care Team Description 09/08/[address] [facility] - Perez Larkin [place] [facility] [address] [place] [address] [place] [address] Social History Tobacco Use Types Packs/Day Years [...] Associated Diagnosis Comme nts XR CERVICAL SPINE 6 09/08/2020 5:01 EST R esults for this OR MORE VIEWS procedure are in the results section. documented in this encounter Results XR CERVICAL SPINE 6 OR MORE VIEWS (09/08/2020 5:01 EST) Specimen Narrative [facility] - 09/08/2020 5:01 EST ? EXAM: RADIOLOGY/CERVICAL SPINE 6 VIEWS OR EX. D/ (1621) ? CLINICAL INFORMATION: ? R51.9 HEADACHE ? PROCEDURE INFORMATION: ? Exam: XR Cervical Spine, 6 or Mor e Views ? Exam date and time: 09/07/2020 4:21 PM ? Age: 55 years old ? Clinical indication: Other: Heada claudia; Additional info: R51.9 ? headache ? TECHNIQUE: ? Imaging protocol: XR of the cervi flaco spine, 6 or more views. ? COMPARISON: ? CR CERVICAL SPINE 3 VIEWS 7 8:56 AM ? FINDINGS: ? Bones/joints: There is no acute f racture. Moderate degenerative ? changes demonstrated by disc spac e narrowing, endplate sclerosis ? and osteophytosis. Facet and unco vertebral joint arthropathy is ? also noted. Right oblique view is limited. Byau-nu-dilyjkwx ? neural foraminal narrowing at the left C5-C6 and C6-C7 levels. ? Alignment is intact. The cranioce rvical junction is intact. ? Soft tissues: No prevertebral sof t tissue swelling. ? IMPRESSION: ? No acute fracture. ??Degenerative changes as described above. ? REPORT SIGNED IN OTHER VENDOR SYSTEM 09/08/2020 ?Reported B y: Geraldine Soria MD ? CC: ? Transcribed Date/Time: 09/08/2020 (0501) ? Auto Brake Mechanic: ? Printed Date/Time: 09/08/2020 (05 01) ? PAGE 1 ? Nuvia d Report ? Procedure Note Geraldine Soria MD - 09/08/2020 EXAM: RADIOLOGY/CERVICAL SPINE 6 VIEWS OR EX. D/ (1621) CLINICAL INFORMATION: R51.9 HEADACHE PROCEDURE INFORMATION: Exam: XR Cervical Spine, 6 or More View s Exam date and time: 09/07/2020 4:21 PM Age: 55 years old Clinical indication: Other: Headache; A dditional info: R51.9 headache TECHNIQUE: Imaging protocol: XR of the cervical sp ine, 6 or more views. COMPARISON: CR CERVICAL SPINE 3 VIEWS 09/04/2016 8:56 AM FINDINGS: Bones/joints: There is no acute fractur e. Moderate degenerative changes demonstrated by disc space narr owing, endplate sclerosis and osteophytosis. Facet and uncoverteb ral joint arthropathy is also noted. Right oblique view is limit ed. Cneb-bw-oeakbwwo neural foraminal narrowing at the left C5-C6 and C6-C7 levels. Alignment is intact. The craniocervical junction is intact. Soft tissues: No prevertebral soft tiss ue swelling. IMPRESSION: No acute fracture. Degenerative changes as described above. REPORT SIGNED IN OTHER VENDOR SYSTEM 09/08/2020 Reported By: Geraldine Soria MD CC: Transcribed Date/Time: 09/08/2020 (8091 ) Auto Brake Mechanic: Printed Date/Time: 09/08/2020 (0581) PAGE 1 Signed Report Performing Organization Address City/State/ZIP Code Phon e Number [facility] documented in this encounter Visit Diagnoses Not on filedocumented in this encounter Care Teams Road Repairer Relationship Specialty Start Date End Date Anshu Yadav MD PCP - General 01/11/18 03/24/22 [address] [place] [address] Perez Larkin MD PCP - General Emergency Medicine 03/25/[address] [place] [address] documented as of this encounter
--- OUTSIDE RECORDS SUMMARY | 2022-04-07 00:15 | XMS_ITS | Encounter Summary ---
:1965 Author Organization [facility] Address [address] [place] [address] Care Team Providers Name Role Phone Unknown, Provider Primary Care Provider Encounter Details Date Type Department Care Team Description 02/06/2017 Hospital Encounter [facility] - Unknown, Jannet dunn [facility] [phone] [address] [facility] (Work) [place] [address] Social History Tobacco Use Types Packs/Day Years Used Date Never Assessed Sex Assigned at Date Recorded Not on file documented as of this encounter Discharge Disposition Disposition Code Departure Means Destination Home or Self Shelter documented in this encounter Plan of Treatment Not on filedocumented as of this encounter Visit Diagnoses Not on filedocumented in this encounter Care Teams Cable Repairer Relationship Specialty Start Date End Date Unknown, ProviderMD PCP - General 08/25/15 01/10/18 documented as of this encounter
--- OUTSIDE RECORDS SUMMARY | 2022-04-07 00:15 | XMS_ITS | Encounter Summary ---
:1965 Author Organization [facility] Address [address] [place] [address] Care Team Providers Name Role Phone Unknown, Provider Primary Care Provider Anshu Yadav MD Primary Care Provider Encounter Details Date Type Department Care Team Description 02/06/2017 Historical Results Only [facility] - Lauren Zuleta, [facility] [place] Resul ts PA-C [phone] [place] [address] Social History Tobacco Use Types Packs/Day Years Used Date Never Assessed Sex Assigned at Date Recorded Not on file documented as of this encounter Plan of Treatment Not on filedocumented as of this encounter Procedures Procedure Name Priority Date/Time Associated Diagnosis Comme nts XR ANKLE RIGHT 3 OR 02/06/2017 10:39 Resu lts for this MORE VIEWS EDT procedure are i n the results section. documented in this encounter Results XR ANKLE RIGHT 3 OR MORE VIEWS (02/06/2017 10:39 EDT) Specimen Narrative [facility] - 02/06/2017 10:42 EDT ? EXAM: RADIOLOGY EXPRESS CARE/EXP CARE XR ??EX. D/ (1036) ? CLINICAL INFORMATION: ? S99.912A ANKLE INJURY LEFT INITIA L ENCOUNTER ? PAIN IN MEDIAL ANKLE/DISTAL FIB, R/O BONY INJURY ? EXP CARE XR ANKL RT 3V+ ??201 7 10:36 AM ? Signs and Symptoms: ?INFECTED WOU ND R ANKLE S99.912A ANKLE INJURY ? LEFT INITIAL ENCOUNTER: PAIN IN M EDIAL ANKLE/DISTAL FIB, R/O BONY ? INJURY ? Comparison: none ? Findings: ? 3 nonweightbearing views of the r ight ankle were obtained. ? They show no evidence of fracture or dislocation. ??The mortise is ? congruent. ??The joint spaces are maintained. ? IMPRESSION: ? No fracture is identified. There is no radiographic evidence of ? osteomyelitis. ? REPORT SIGNED IN OTHER VENDOR SYSTEM 02/06/2017 ?Reported B y: Moises Neely MD ? CC: ? Transcribed Date/Time: 02/06/2017 (1042) ? Queen Producer: ? Printed Date/Time: 02/17/2019 (10 10) ? PAGE 1 ? Nuvia d Report ? Procedure Note Moises Neely MD - 07/09/2019 EXAM: RADIOLOGY EXPRESS CARE/EXP CARE X R EX. D/ (1036) CLINICAL INFORMATION: S99.912A ANKLE INJURY LEFT INITIAL ENCO UNTER PAIN IN MEDIAL ANKLE/DISTAL FIB, R/O FEI [place] INJURY EXP CARE XR ANKL RT 3V+ 02/06/2017 10:36 AM Signs and Symptoms: ?INFECTED WOUND R A NKLE S99.912A ANKLE INJURY LEFT INITIAL ENCOUNTER: PAIN IN MEDIAL ANKLE/DISTAL FIB, R/O BONY INJURY Comparison: none Findings: 3 nonweightbearing views of the right a nkle were obtained. They show no evidence of fracture or di slocation. The mortise is congruent. The joint spaces are maintai fidelia. IMPRESSION: No fracture is identified. There is no radiographic evidence of osteomyelitis. REPORT SIGNED IN OTHER VENDOR SYSTEM 02/06/2017 Reported By: Moises Neely MD CC: Transcribed Date/Time: 02/06/2017 (8408 ) Queen Producer: Printed Date/Time: 02/17/2019 (2661) PAGE 1 Signed Report Performing Organization Address City/State/ZIP Code Phon e Number [facility] documented in this encounter Visit Diagnoses Not on filedocumented in this encounter Care Teams Customer Experience Analyst Relationship Specialty Start Date End Date Unknown, MD Anna PCP - General 08/25/15 01/10/18 Anshu Yadav MD PCP - General 01/11/18 03/24/[address] [place] [address] documented as of this encounter
--- OUTSIDE RECORDS SUMMARY | 2022-04-07 00:15 | XMS_ITS | Encounter Summary ---
:1965 Author Organization [facility] Address [address] [place] [address] Care Team Providers Name Role Phone Vanessa Almeida MD Primary Care Provider Tracey Monson Primary Care Provider Vanessa Almeida MD Primary Care Provider Encounter Details Date Type Department Care Team Description 11/04/2002 Results Only [facility] - Jocelyn Jarrell od, ITZEL Nunez [address] [place] [phone] (Wo rk) Social History Tobacco Use Types Packs/Day Years Used Date Never Assessed Sex Assigned at Date Recorded Not on file documented as of this encounter Plan of Treatment Not on filedocumented as of this encounter Procedures Procedure Name Priority Date/Time Associated Diagnosis Comme nts CYTOPATHOLOGY Routine 11/04/2002 0:00 EST Results for this procedure are i n the results section . documented in this encounter Results CYTOPATHOLOGY (11/04/2002 0:00 EST) Pathology Report: CYTOPATHOLOGY REPORT [facility] Reports generated via electronic interface contain grabiel ginal data; however they are lacking the format of the original re port. Caution should be taken when reading/interpreting unfo rmatted reports. Name: ? CLAUDIO LARA ? Accession #: ? [id number] : ? 1965 (Age: 37) ??F ?Collect Date: ? 03/0 12/2002 Location: ? [facility] ? Receive Date : ? 11/06/2002 Provider: ?ÁNGELA LEON FIELD OBSERVER Copy to: ? Specimen/Source: ?Conventional Pap Test, Cer vix/Endocervix Last Menstrual Period: ? 10/14/02 Hormonal/Contraceptive Status: ? Oral contraceptives ? SPECIMEN ADEQUACY ? Satisfactory for Evaluation - transformation zone component present GENERAL CATEGORIZATION ? Epithelial Cell Abnormality INTERPRETATION ? Squamous Cell Abnormality - Low grade squamous intraepithelial lesion (LSIL). EDUCATIONAL NOTES/RECOMMENDATIONS ? COUNTS INCLUDE 234 BEDS AT THE [facility] recommends sandra plata the 2001 Consensus Guidelines for the Management of Women with Cervical Cytological Abnormalities (RAY Sauer,2002;287:2120-9). Management algorithms have b een distributed by COUNTS INCLUDE 234 BEDS AT THE [facility] and are available online at www.ASCCP.org. ? Document reviewed and electronically signed by: ? HOOD LOVE MD ? Report Date: ??11/10/2002 11:20 End of Report Specimen Performing Organization Address City/State/ZIP Code Phon e Number [facility] [address] [place] [address] SERVICES [facility] [address] [place] [address] documented in this encounter Visit Diagnoses Not on filedocumented in this encounter Care Teams Wire Weaver Relationship Specialty Start Date End Date Vanessa Almeida MD PCP - General 05/14/09 08/24/15 [address] [place] [address] Tracey Monson FNP PCP - General 04/13/09 05/13/09 [address] [place] [address] Vanessa Almeida MD PCP - General 04/07/09 04/12/09 [address] [place] [address] documented as of this encounter
--- OUTSIDE RECORDS SUMMARY | 2022-04-07 00:15 | XMS_ITS | Encounter Summary ---
:1965 Author Organization [facility] Address [address] [place] [address] Care Team Providers Name Role Phone Vanessa Almeida MD Primary Care Provider Tracey Monson Primary Care Provider Vanessa Almeida MD Primary Care Provider Encounter Details Date Type Department Care Team Description 12/12/2000 Results Only [facility] - Stephanie Hale MD conversion [address] [place] [phone] (Wo rk) Social History Tobacco Use Types Packs/Day Years Used Date Never Assessed Sex Assigned at Date Recorded Not on file documented as of this encounter Plan of Treatment Not on filedocumented as of this encounter Procedures Procedure Name Priority Date/Time Associated Diagnosis Comme [facility] CYTOPATHOLOGY Routine 12/12/2000 0:00 EDT Results for this procedure are i n the results section . documented in this encounter Results CYTOPATHOLOGY (12/12/2000 0:00 EDT) Pathology Report: CYTOPATHOLOGY REPORT [facility] Reports generated via electronic interface contain grabiel ginal data; however they are lacking the format of the original re port. Caution should be taken when reading/interpreting unfo rmatted reports. Name: ? CLAUDIO LARA ? Accession #: ? [id number] : ? 1965 (Age: 35) ??F ?Collect Date: ? 12/02 Location: ? [facility] ? Receive Date : ? 12/13/2000 Provider: ? STEPHANIE MCCULLOUGH MD Copy to: ?SHANE BUENO MD ? CYTOLOGIC DIAGNOSIS: ? Urine, voided, cytology: - Atypical clusters of urothelial cells. ??See comment . ? COMMENT: ? In a background consi sting mainly of mature squames of lower genital tract or urethral origin, several small clusters of vacuolated transitional cells have been observed. ??Clusters of urothelial cells in a voi ded urine specimen may represent an atypical finding; recommend additional ma terial for cytologic evaluation or appropriate fo llow-up as clinically indicated. ??(Dr. Petit)/[facility] Document reviewed and electronically signed by: ? RICARDO PETIT MD [facility] Report Date: ??12/17/2000 13:12 By the signature above, the attending physician certif ies that he/she has personally conducted a gross and/or microscopic examin ation of the described specimens and rendered or confirmed the above diagnosi s. Specimen Type: ? Urine, Voided Clinical History: ? Pelvic pain. ? Gross Description: ? 1 tube of cytolyt was received and processed. ? End of Report Specimen Performing Organization Address City/State/ZIP Code Phon e Number [facility] [address] [place] [address] SERVICES [facility] [address] [place] [address] documented in this encounter Visit Diagnoses Not on filedocumented in this encounter Care Teams Flight/Transport Nurse Relationship Specialty Start Date End Date Vanessa Almeida MD PCP - General 05/14/09 08/24/15 [address] [place] [address] Tracey Monson FNP PCP - General 04/13/09 05/13/09 [address] [place] [address] Vanessa Almeida MD PCP - General 04/07/09 04/12/09 [address] [place] [phone] documented as of this encounter
--- OUTSIDE RECORDS SUMMARY | 2022-04-07 00:15 | XMS_ITS | Encounter Summary ---
:1965 Author Organization [facility] Address [address] [place] [address] Care Team Providers Name Role Phone Vanessa Almeida MD Primary Care Provider Tracey Monson Primary Care Provider Vanessa Almeida MD Primary Care Provider Encounter Details Date Type Department Care Team Description 09/20/2000 Results Only [facility] - Cody Feng MD conversion [address] [place] [address] Social History Tobacco Use Types Packs/Day Years Used Date Never Assessed Sex Assigned at Date Recorded Not on file documented as of this encounter Plan of Treatment Not on filedocumented as of this encounter Procedures Procedure Name Priority Date/Time Associated Diagnosis Comme nts CYTOPATHOLOGY Routine 09/20/2000 0:00 EST Results for this procedure are i n the results section . documented in this encounter Results CYTOPATHOLOGY (09/20/2000 0:00 EST) Pathology Report: CYTOPATHOLOGY REPORT [facility] Reports generated via electronic interface contain grabiel ginal data; however they are lacking the format of the original re port. Caution should be taken when reading/interpreting unfo rmatted reports. Name: ? CLAUDIO LARA ? Accession #: ? [id number] : ? 1965 (Age: 35) ??F ?Collect Date: ? 09/03 Location: ? [facility] ? Receive Date : ? 09/24/2000 Provider: ?CODY BUENO MD Copy to: ? Specimen/Source: ?Conventional Pap Test, Cer vix/Endocervix Last Menstrual Period: ? 09/06/00 Menstrual/ Status: ? Irregular ? SPECIMEN ADEQUACY ? Satisfactory for evaluation. GENERAL CATEGORIZATION ? Within Normal Limits ? Document reviewed and electronically signed by: ? URIAH Marcos(ASCP) ? Report Date: ??09/24/2000 11:35 End of Report Specimen Performing Organization Address City/State/ZIP Code Phon e Number [facility] [address] [place] [address] SERVICES [facility] [address] [place] [address] documented in this encounter Visit Diagnoses Not on filedocumented in this encounter Care Teams Cat Sitter Relationship Specialty Start Date End Date Vanessa Almeida MD PCP - General 05/14/09 08/24/15 [address] [place] [address] Tracey Monson FNP PCP - General 04/13/09 05/13/09 [address] [place] [address] Vanessa Almeida MD PCP - General 04/07/09 04/12/09 [address] [place] [address] documented as of this encounter
--- OUTSIDE RECORDS SUMMARY | 2022-04-07 00:15 | XMS_ITS | Encounter Summary ---
:1965 Author Organization [facility] Address [address] [place] [address] Care Team Providers Name Role Phone Vanessa Almeida MD Primary Care Provider Tracey Monson Primary Care Provider Vanessa Almeida MD Primary Care Provider Encounter Details Date Type Department Care Team Description 07/18/2007 Results Only [facility] - Jocelyn Jarrell od, Erin Geiger, ITZEL [address] [place] [phone] (Wo rk) Social History Tobacco Use Types Packs/Day Years Used Date Never Assessed Sex Assigned at Date Recorded Not on file documented as of this encounter Plan of Treatment Not on filedocumented as of this encounter Procedures Procedure Name Priority Date/Time Associated Diagnosis Comme nts CYTOPATHOLOGY Routine 07/18/2007 0:00 EST Results for this procedure are i n the results section . documented in this encounter Results CYTOPATHOLOGY (07/18/2007 0:00 EST) Pathology Report: CYTOPATHOLOGY REPORT [facility] Reports generated via electronic interface contain grabiel ginal data; however they are lacking the format of the original re port. Caution should be taken when reading/interpreting unfo rmatted reports. Name: ? CLAUDIO LARA ? Accession #: ? [id number] : ? 1965 (Age: 41) ??F ?Collect Date: ? 07/04 Location: ? [facility] ? Receive Date : ? 07/19/2007 Provider: ?ERIN LEON COST ACCOUNTING ANALYST Copy to: ? Specimen/Source: ? ThinPrep Pap Test, Cervix/Endocervix, processed on [employer] ThinPrep Imaging System, with manual evaluation Last Menstrual Period: ? 06/22/07 Previous Gynecologic Pathology: ? LSIL: 11/04/02 HPV: + , 05/29/03 pap neg. Other: ? HPVA - HPV testing requested if ASC-US on the current ThinPrep Pap test. ? SPECIMEN ADEQUACY ? Satisfactory for Evaluation - transformation zone component present GENERAL CATEGORIZATION ? Negative for Intraepithelial Lesion or Malignan cy INTERPRETATION ? Reactive cellular ninfa nges associated with inflammation present (includes repair). ? Document reviewed and electronically signed by: ? Shira Guerrero MD ? Report Date: ??07/26/2007 13:48 End of Report Specimen Performing Organization Address City/State/ZIP Code Phon e Number [facility] [address] [place] [address] SERVICES [facility] [address] [place] [address] documented in this encounter Visit Diagnoses Not on filedocumented in this encounter Care Teams Mapping Specialist Relationship Specialty Start Date End Date Vanessa Almeida MD PCP - General 05/14/09 08/24/15 [address] [place] [address] Tracey Monson FNP PCP - General 04/13/09 05/13/09 [address] [place] [address] Vanessa Almeida MD PCP - General 04/07/09 04/12/09 [address] [place] [address] documented as of this encounter
--- OUTSIDE RECORDS SUMMARY | 2022-04-07 00:15 | XMS_ITS | Encounter Summary ---
:1965 Author Organization [facility] Address [address] [place] [address] Care Team Providers Name Role Phone Anshu Yadav MD Primary Care Provider Perez Larkin MD Primary Care Provider Encounter Details Date Type Department Care Team Description 03/13/2022 Lab Requisition [facility] Fernanda Flores Encounter for other Pathology & [address] [facility] general examination Laboratory Medicine [facility] [phone] [address] [facility] [phone] [place] [address] (Work) [phone] Social History Tobacco Use Types Packs/Day Years [...] Procedure Name Priority Date/Time Associated Comments Diagnosis PAP TEST Today 03/10/2022 15:30 Encounter for [...] are in RISK TYPES the results section. documented in this encounter Results HPV GENOTYPES 16 AND 18/45 (03/10/2022 15:30 EDT) Pathologist Sig nature HPV16 RNA Negative Negative [facility] SERVICES HPV18/45 RNA Negative Negative [facility] (HPV18/45) LABORATORY SERVICES Specimen Pap Test - Cervix and/or Endocervix Performing Organization Address City/[facility]/ZIP Code Phon e Number [facility] [address] [place] [address] SERVICES (ABNORMAL) HUMAN PAPILLOMAVIRUS (HPV) DETECTION-HIGH RISK TYPES (03/10/2022 15:30 EDT) Human Papillomavirus Positive (A)Comment: Negative [facility] MEDICAL (HPV) Detection-High E6 OR E7 mRNA from CENTER Types one or more types of LABORATORY HPV types SERVICES 16,18,31,33,35,39,45, 51,52,56,58,59,66, and 68 is detected by consulting utility forester mediated amplification. High and intermediate risk HPV types are associated with most squamous intraepithelial lesions and cervical cancers. Specimen Pap Test - Cervix and/or Endocervix Performing Organization Address City/[facility]/ZIP [facility] Phon e Number [facility] [address] [place] [address] SERVICES PAP TEST (03/10/2022 15:30 EDT) Specimens A. Cervix and/or [facility] Endocervix , ThinPrep CENTER Imaging System with LABORATORY Manual Evaluation SERVICES Specimen Adequacy Satisfactory for [facility] MEDICAL Evaluation - CENTER transformation zone LABORATORY component present SERVICES General Negative for [facility] MEDICAL Categorization intraepithelial CENTER lesion or malignancy LABORATORY SERVICES Descriptive Reactive cellular UV MEDICAL Diagnosis changes associated CENTER with inflammation LABORATORY present (includes SERVICES repair). Attestation By the signature below, the attending physician certifies that they have personally conducted a gross and/or microscopic [facility] Electronically examination of the described specimens and rendered or confirmed the above diagnosis. CENTER signed by LABORATORY Nilesh Walton MD on 022 at 1419 Clinical History See below [facility] SERVICES HPV The result for the Human Pap illomavirus (HPV) Detection-High Risk Types is Positive . E6 OR E7 mRNA from one or more types of HPV types 16,18,31,33,35,39,45,51,52,56,58,59,66, and 68 is detected by deleon [facility] scription mediated amplifica tion. High and intermediate risk HPV types are associated with most squamous intraepithelial lesions and cervical cancers. Testing was performed on specimen [id number] and CENTER was resulted on 03/17/2022 2317 EDT by RICHIE, LAB INSTRUMENT RESULTS IN LABORATORY SERVICES Genotyping 16 & The results for the HPV Chloe types 16 and 18/45 are Negative for the HPV16 RNA and Negative for the HPV18/45 RNA (HPV18/45). Testing was performed on specimen [id number] and was resulted on 03/23/2022 1355 EDT by RICHIE, LAB INSTRUMENT RESULTS IN [facility] [address] [place] [address] LABORATORY SERVICES Performing Lab [facility] Scanned Images [facility] Specimen Pap Test - Cervix and/or Endocervix Performing Organization Address City/State/ZIP Code Phon e Number [facility] [address] [place] [address] SERVICES documented in this encounter Visit Diagnoses Diagnosis Encounter for other general examination documented in this encounter Care Teams Cured Meats Supervisor Relationship Specialty Start Date End Date Anshu Yadav MD PCP - General 01/11/18 03/24/[address] [place], [place] [id number] Perez Larkin MD PCP - General Emergency Medicine 03/25/[address] [place] [address] documented as of this encounter
--- OUTSIDE RECORDS SUMMARY | 2022-04-07 00:15 | XMS_ITS | Encounter Summary ---
:1965 Author Organization [facility] Address [address] [place] [address] Care Team Providers Name Role Phone Tracey Monson ITZEL Primary Care Provider Encounter Details Date Type Department Care Team Description 05/12/2009 Orders Only [facility] Galilea Steel MD Laboratory Services - [address] [place] [address] [place] [address] Social History Tobacco Use Types Packs/Day Years Used Date Never Assessed Sex Assigned at Date Recorded Not on file documented as of this encounter Plan of Treatment Not on filedocumented as of this encounter Procedures Procedure Name Priority Date/Time Associated Diagnosis Comme [facility] SURGICAL PATHOLOGY Routine 05/12/2009 0:00 EDT Re sults for this procedure are i n the results section. documented in this encounter Results SURGICAL PATHOLOGY (05/12/2009 0:00 EDT) Pathology Report: SURGICAL PATHOLOGY REPORT ? [facility] Reports generated via electr ShareYourCart interface contain original data; ? LAB however they are lacking the format of the original report. ? Caution should be taken when reading/interpreting unformatted reports. ? Name: ? CARLOSETTE, SHEI LA ? Accession #: ? [id number] ? : ? 1965 (Age: 43) ??F ? Collec t Date: ? 05/12/2009 ? Location: ? [facility] ? R eceive Date: ? 05/13/2009 ? Provider: GALILEA GUI MD ? Copy to: EMILY FINE MD ? Final Pathologic Diagnosis: ? Endocervix, curettage : ? 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 ??See comment. ? Comment: ? The previous Pap smea r ([id number]) was reviewed and the abnormal cells ? correlate with the reactive metaplastic cells in the current biopsy. ??(M. ? Darrell)/ljn ? Document reviewed and electr onically signed by: ? ABDELMONEM ELHOSSEINY MD ? Report ??Date: 05/17/2009 16 :51 ? By the signature above, the attending physician certifies that he/she has ? personally conducted a gross and/or microscopic examination of the described ? specimens and rendered or co nfirmed the above diagnosis. ? Specimen(s) Received: ? ECC ? Clinical History: ? 8/04/09 Pap ASCUS (+) HPV ? Gross Description: ? Received in formalin labelled Carlosette, Jewell and endo cx is 1 cc of blood tinged mucus admixed w ith scant fragments of red-brown tissue. ??The ? specimen is entirely submitt ed in one cassette. (Jian Clancy)/mpl ? End of Report ? Specimen Performing Organization Address City/State/ZIP Code Phon e Number [facility] [address] [place] [address] SERVICES [facility] [address] [place] [address] documented in this encounter Visit Diagnoses Not on filedocumented in this encounter Care Teams Wash Plant Operator Relationship Specialty Start Date End Date Tracey oMnson FNP PCP - General 04/13/09 05/13/09 [address] [place], [place] [address] documented as of this encounter
--- OUTSIDE RECORDS SUMMARY | 2022-04-07 00:15 | XMS_ITS | Encounter Summary ---
:1965 Author Organization [facility] Address [address] [place] [address] Care Team Providers Name Role Phone Anshu Yadav MD Primary Care Provider Encounter Details Date Type Department Care Team Description 03/14/2018 Historical Results [facility] - Lizette Sauceda Only [facility] Radiology Resul ts H, FINANCIAL AID COORDINATOR [address],[place] [address] [address] [place] [phone] Social History Tobacco Use Types Packs/Day Years [...] Name Priority Date/Time Associated Diagnosis Comme nts CT RENAL STONE 03/14/2018 11:20 EDT Resul ts for this procedure are i n the results section . documented in this encounter Results CT RENAL STONE (03/14/2018 11:20 EDT) Specimen Narrative [facility] - 03/14/2018 11:23 EDT ? EXAM: CAT SCAN/CT STONE PROTOCOL ?EX. D/ (0909) ? CLINICAL INFORMATION: ? R39.9 LOWER URINARY TRACT INFECTI ON ? Z87.440 HX OF UTI, R10.9 RIGHT FL ANK PAIN ? INDICATION: ? R39.9 LOWER URI NARY TRACT INFECTION, Z87.440 HX OF ? UTI, R10.9 RIGHT FLANK PAIN LOWER URINARY TRACT SYMPTOMS ? TECHNIQUE: ??Contiguous axial non contrast CT images of the abdomen and ? pelvis were acquired. Multiplanar reformations were created. ? COMPARISON: None. ? FINDINGS: ? Lower chest: The lung bases are c lear. There is no pleural or ? pericardial effusion. ? Hepatobiliary: No focal hepatic l esion. Gallbladder appears normal. ? There is no biliary ductal dilata tion. ? Spleen, pancreas, adrenal glands: No abnormalities. ? Kidneys, ureters, bladder: The ki dneys are normal in position and ? morphology. There is no hydroneph rosis or nephrolithiasis. The ? ureters are normal in caliber. Th e bladder is thin-walled. ? Uterus, ovaries: Uterus anteverte d. No adnexal mass. ? Bowel: No bowel obstruction or radha wel wall thickening. No diverticular ? disease ? Peritoneal cavity / Subperitoneal space: No free fluid or free ? intraperitoneal air. ? Lymphovascular: Scattered aortic atherosclerosis. No aneurysm. No ? lymphadenopathy identified. ? Abdominal wall: Intact. ? Musculoskeletal: No acute osseous abnormality detected. Mild convex ? leftward curvature of lumbar spin e is centered at L4. ? IMPRESSION: ? No urinary tract calculi. Normal noncontrast appearance of the ? kidneys. ? REPORT SIGNED IN OTHER VENDOR SYSTEM 03/14/2018 ?Reported B y: Prince Mayers MD ? CC: ? Transcribed Date/Time: 03/14/2018 (1123) ? Cable Television Line Technician: HIS.[email or web address] ? Printed Date/Time: 02/21/2019 (10 35) ? PAGE 1 ? Nuvia d Report ? Procedure Note Prince Mayers MD - 07/10/2019 EXAM: CAT SCAN/CT STONE PROTOCOL EX. D/ (0909) CLINICAL INFORMATION: R39.9 LOWER URINARY TRACT INFECTION Z87.440 HX OF UTI, R10.9 RIGHT FLANK PA IN INDICATION: R39.9 LOWER URINARY TRACT I NFECTION, Z87.440 HX OF UTI, R10.9 RIGHT FLANK PAIN LOWER URINA RY TRACT SYMPTOMS TECHNIQUE: Contiguous axial noncontrast CT images of the abdomen and pelvis were acquired. Multiplanar refor mations were created. COMPARISON: None. FINDINGS: Lower chest: The lung bases are clear. There is no pleural or pericardial effusion. Hepatobiliary: No focal hepatic lesion. Gallbladder appears normal. There is no biliary ductal dilatation. Spleen, pancreas, adrenal glands: No ab normalities. Kidneys, ureters, bladder: The kidneys are normal in position and morphology. There is no hydronephrosis or nephrolithiasis. The ureters are normal in caliber. The blad mona is thin-walled. Uterus, ovaries: Uterus anteverted. No adnexal mass. Bowel: No bowel obstruction or bowel wa ll thickening. No diverticular disease Peritoneal cavity / Subperitoneal space : No free fluid or free intraperitoneal air. Lymphovascular: Scattered aortic athero sclerosis. No aneurysm. No lymphadenopathy identified. Abdominal wall: Intact. Musculoskeletal: No acute osseous abnor mality detected. Mild convex leftward curvature of lumbar spine is c entered at L4. IMPRESSION: No urinary tract calculi. Normal noncon trast appearance of the kidneys. REPORT SIGNED IN OTHER VENDOR SYSTEM 03/14/2018 Reported By: Prince Mayers MD CC: Transcribed Date/Time: 03/14/2018 (9358 ) Cable Television Line Technician: Printed Date/Time: 02/21/2019 (3371) PAGE 1 Signed Report Performing Organization Address City/State/ZIP Code Phon e Number [facility] documented in this encounter Visit Diagnoses Not on filedocumented in this encounter Care Teams Merchandising Director Relationship Specialty Start Date End Date Anshu Yadav MD PCP - General 01/11/18 03/24/22 [address] [place] [address] documented as of this encounter
--- OUTSIDE RECORDS SUMMARY | 2022-04-07 00:15 | XMS_ITS | Encounter Summary ---
:[address] [facility] Address [address] [place] [address] Care Team Providers Name Role Phone Vanessa Almeida MD Primary Care Provider Encounter Details Date Type Department Care Team Description 04/06/2009 Orders Only [facility] Bassam Bansal, [facility] Laboratory Services - [address] [facility] [address] [place] [address] [address] [place] [address] [phone] Social History Tobacco Use Types Packs/Day Years Used Date Never Assessed Sex Assigned at Date Recorded Not on file documented as of this encounter Plan of Treatment Not on filedocumented as of this encounter Procedures Procedure Name Priority Date/Time Associated Comments Diagnosis HPV DETECTION, HIGH Routine 04/06/2009 13:40 Resu lts for this RISK TYPES EDT procedure are i n the results section. CYTOPATHOLOGY Routine 04/06/2009 0:00 Results for this EDT procedure are i n the results section. documented in this encounter Results HUMAN PAPILLOMA VIRUS DNA TEST (04/06/2009 13:40 EDT) Specimen Description Cervix, ThinPrep [facility] vial LAB Result Positive for one or more of HPV types 16,18,31,33,35,39,45,51,52,56,58,59, or 68. These [facility] K[facility]LAN[facility] high/intermediate risk HPV t ypes are associated with dysplasia and some cervical cancers. LAB Report Status Final [facility] 04/14/2009 LAB Specimen Performing Organization Address City/State/ZIP Code Phon e Number [facility] [address] [place] [address] SERVICES [facility] [address] [place] [address] CYTOPATHOLOGY (04/06/2009 0:00 EDT) Pathology Report: CYTOPATHOLOGY REPORT ? [facility] MARTINEZ ? LAB Reports generated via electr onic interface contain original data; ? however they are lacking the format of the original report. ? Caution should be taken when reading/interpreting unformatted reports. ? Name: ? SIERRA LARA ? Accession #: ? [id number] ? : ? 1965 (Age: 43) ??F ?Collect Date: ? 04/06/2009 ? Location: ? [facility] ? Receive Date: ? 04/07/2009 ? Provider: ?ÁNGELA HAYG OOD FLOAT OPERATOR ? Copy to: ? Specimen/Source: ? Pap Test, Cervix/Endocervix, ThinPrep Imaging System ? with manual evaluation ? Last Menstrual Period: ? 01/26/09 ? Previous Gynecologic Patholo gy: ? LSIL: 03/04/03 ? HPV: + neg pap 09/26/03 ? Other: ? HPVA - HPV testing requested if ASC-US on the current ThinPrep Pap test. ? SPECIMEN ADEQUACY ? Satisfactory for Eval uation ? - transformation zone compon ent present ? GENERAL CATEGORIZATION ? Epithelial Cell Abnor mality ? INTERPRETATION ? Squamous Cell Abnorma lity - Atypical squamous cells, undetermined ? significance (ASC-US). ? EDUCATIONAL NOTES/RECOMMENDA TIONS ? FA recommends [facility] the 2006 Consensus Guidelines for the Management of Women with Abnormal Cervi flaco Cancer Screening Tests (JLGTD, ? 2007;11(4):201-222). ??Conse nsus guidelines are available online at ? www.ASCCP.org. ? Document reviewed and electr onically signed by: ? Surjit Charles MD ? Report Date: ??08/07/ 2009 16:26 ? End of Report ? Specimen Performing Organization Address City/State/ZIP Code Phon e Number [facility] [address] [place] [address] SERVICES [facility] [address] [place] [address] documented in this encounter Visit Diagnoses Not on filedocumented in this encounter Care Teams Director Employment Relationship Specialty Start Date End Date Vanessa Almeida MD PCP - General 04/07/09 04/12/09 [address] [place] [phone] documented as of this encounter
--- OUTSIDE RECORDS SUMMARY | 2022-04-07 00:15 | XMS_ITS | Encounter Summary ---
:1965 Author Organization [facility] Address [address] [place] [address] Care Team Providers Name Role Phone Anshu Yadav MD Primary Care Provider Perez Larkin MD Primary Care Provider Encounter Details Date Type Department Care Team Description 11/24/2021 Lab Requisition [facility] Outr Resulting Lab, Pathology & Laboratory Provider [facility] [address] [place] [address] Social History Tobacco Use Types Packs/Day Years [...] Name Priority Date/Time Associated Diagnosis Comme nts HEPATITIS C AB W Routine 11/23/2021 16:25 Results for this REFLEX TO HCV RNA EDT procedure are in BY PCR the results section. documented in this encounter Results HEPATITIS C AB W REFLEX TO HCV RNA BY PCR (11/23/2021 16:25 EDT) Pathologist Sig nature Hep C Antibody Negative Negative [facility] Specimen Blood - Venous blood (substance) Performing Organization Address City/State/ZIP Code Phon e Number [facility] [address] [place] [address] SERVICES documented in this encounter Visit Diagnoses Not on filedocumented in this encounter Care Teams Hospice Care Sales Consultant Relationship Specialty Start Date End Date Anshu Yadav MD PCP - General 01/11/18 03/24/22 [address] [place] [address] Perez Larkin MD PCP - General Emergency Medicine 03/25/[address] [place] [address] documented as of this encounter
--- OUTSIDE RECORDS SUMMARY | 2022-04-07 00:15 | XMS_ITS | Encounter Summary ---
:1965 Author Organization [facility] Address [address] [place] [address] Care Team Providers Name Role Phone Unknown, Provider Primary Care Provider Encounter Details Date Type Department Care Team Description 09/04/2016 Hospital Encounter [facility] - Unknown, Jannet dunn [facility] [phone] [address] [facility] (Work) [place] [address] Social History Tobacco Use Types Packs/Day Years Used Date Never Assessed Sex Assigned at Date Recorded Not on file documented as of this encounter Discharge Disposition Disposition Code Departure Means Destination Home or Self [facility] documented in this encounter Plan of Treatment Not on filedocumented as of this encounter Visit Diagnoses Not on filedocumented in this encounter Care Teams Manager It Security Relationship Specialty Start Date End Date Unknown, ProviderMD PCP - General 08/25/15 01/10/18 documented as of this encounter
--- OUTSIDE RECORDS SUMMARY | 2022-04-07 00:15 | XMS_ITS | Encounter Summary ---
:1965 Author Organization [facility] Address [address] [place] [address] Care Team Providers Name Role Phone Vanessa Almeida MD Primary Care Provider Tracey Monson Primary Care Provider Vanessa Almeida MD Primary Care Provider Encounter Details Date Type Department Care Team Description 03/23/2005 Results Only [facility] - Cody Feng MD conversion [address] [place] [address] Social History Tobacco Use Types Packs/Day Years Used Date Never Assessed Sex Assigned at Date Recorded Not on file documented as of this encounter Plan of Treatment Not on filedocumented as of this encounter Procedures Procedure Name Priority Date/Time Associated Diagnosis Comme nts CYTOPATHOLOGY Routine 03/23/2005 0:00 EDT Results for this procedure are i n the results section . documented in this encounter Results CYTOPATHOLOGY (03/23/2005 0:00 EDT) Pathology Report: CYTOPATHOLOGY REPORT [facility] Reports generated via electronic interface contain grabiel ginal data; however they are lacking the format of the original re port. Caution should be taken when reading/interpreting unfo rmatted reports. Name: ? CLAUDIO LARA ? Accession #: ? [id number] : ? 1965 (Age: 39) ??F ?Collect Date: ? 03/04 Location: ? [facility] ? Receive Date : ? 03/27/2005 Provider: ?CODY BUENO MD Copy to: ? Specimen/Source: ? ThinPrep Pap Test, Cervix/Endocervix, processed on [employer] ThinPrep Imaging System, with manual evaluation Last Menstrual Period: ? 03/12/05 Other: ? HPVA - HPV testing requested if ASC-US on the current ThinPrep Pap test. ? SPECIMEN ADEQUACY ? Satisfactory for Evaluation - transformation zone component present GENERAL CATEGORIZATION ? Other, see interpretation INTERPRETATION ? Endometrial cells present in a woman equal to o r greater than age 40. Negative for Intraepithelial Lesion or Malignancy. EDUCATIONAL NOTES/RECOMMENDATIONS ? Benign appearing endometrial cells on Pap tests are usually a normal finding in women with regular menstrual cycles, especially if the Pap test was collected during the first half of the menstrual cycle . There is data showing that e ndometrial cells on Pap tests may be associated with endometrial/uterine abnormal ities in post menopausal women or in perimenopausal women with abnormal bleeding. There is limited data on the significance of haritha ign endometrial cells in post menopausal women on HRT. ??Clinical correlation is rec ommended. Note: ??The Pap test is not an accurate test for the screening of endometrial lesions and should not be used as a follow up in patie nts with clinical suspicion of endometrial pathology. ? Document reviewed and electronically signed by: ? STEVEN Chu(ASCP) ? Report Date: ??04/04/2005 11:12 End of Report Specimen Performing Organization Address City/State/ZIP Code Phon e Number [facility] [address] [place] [address] SERVICES [facility] [address] [place] [address] documented in this encounter Visit Diagnoses Not on filedocumented in this encounter Care Teams Senior Electronics Engineer Relationship Specialty Start Date End Date Vanessa Almeida MD PCP - General 05/14/09 08/24/15 [address] [place] [phone] Tracey Monson FNP PCP - General 04/13/09 05/13/09 [address] [place], [place] [address] Vanessa Almeida MD PCP - General 04/07/09 04/12/09 [address] [place] [phone] documented as of this encounter
--- OUTSIDE RECORDS SUMMARY | 2022-04-07 00:15 | XMS_ITS | Encounter Summary ---
:1965 Author Organization [facility] Address [address] [place] [address] Care Team Providers Name Role Phone Unknown, Provider Primary Care Provider Encounter Details Date Type Department Care Team Description 02/09/2016 Hospital Encounter [facility] - Unknown, Jannet dunn [facility] [phone] [address] [facility] (Work) [place] [address] Social History Tobacco Use Types Packs/Day Years Used Date Never Assessed Sex Assigned at Date Recorded Not on file documented as of this encounter Discharge Disposition Disposition Code Departure Means Destination Home or Self Group Home documented in this encounter Plan of Treatment Not on filedocumented as of this encounter Visit Diagnoses Not on filedocumented in this encounter Care Teams Validation Scientist Relationship Specialty Start Date End Date Unknown, ProviderMD PCP - General 08/25/15 01/10/18 documented as of this encounter
--- NOTE | 2022-04-07 15:15 | DI.MAMMO_ITS ---
Exam(s) MAMMO SCREENING EXAM: MAMMO SCREENING CLINICAL HISTORY: screening TECHNIQUE: Bilateral full field digital CC and MLO mammographic images were obtained with 3D tomosyn thesis and utilizing computer aided detection (CAD). COMPARISON: Available for comparison. FINDINGS: Masses/Architectural Distortion: None seen. Microcalcifications: No suspicious pleomorphic-type are seen. Skin Thickening/Nipple Retraction: None. IMPRESSION: 1. No significant interval change with no specific features of malignancy noted. 2. Unless there is more urgent need, screening mammography is recommended, as per [employer] guidelines. BI-RADS Category 1 - Negative Breast Density - Category B - Scattered areas of fibroglandular density Breast density category C or D implies that the patient has dense breast tissue. Dense breast tissue is very common and is not abnormal but dense breast tissue can make it harder to find cancer on a ma mmogram. Also, dense breast tissue may increase their breast cancer risk. This information about the result of the mammogram report was provided to the patient to raise their awareness. Use this report when you speak with the patient about their risks for breast cancer, which includes their family hist ory. At that time, you may recommend for more screening tests (Ultrasound or MRI) as they might be us eful based on their risk. A negative radiographic report should not delay biopsy if a dominant or clinically suspicious mass is present. Up to ten percent of cancers are not identified on mammography. A negative report may reinforce clinical impression. Adenosis and dense breasts may obscure an underlying neoplasm. False positive reports average 6 to 10%. Patient will receive a letter notifying them of these results.
== END ==
PROVIDERS: PCP Internal Medicine; Visit Provider Obstetrics & Gynecology
DX: Z12.31 Encounter for screening mammogram for malignant neoplasm of breast (principal)
CPT/HCPCS: 77063; 77067

== ENCOUNTER 2022-04-28 06:41 | Day surgery (SDC) | payer OTHER, SELFPAY ==
--- NOTE | 2022-04-27 16:07 | PDOC.DSDIS_ITS ---
Discharge Plan Disposition Patient Disposition: HOME Condition: Good Discharge Details Reason For Visit: Colonoscopy Attending Provider: Veronica Daniels Primary Care Provider: Anshu Yadav Home Meds and New Rx's Prescriptions: Discontinued polyethylene glycol 3350 17 gram/dose powder 238 g PO ONCE Qty: 238 0RF Rx Instructions: take per colonoscopy instructions bisacodyl [Dulcolax (bisacodyl)] 5 mg tablet,delayed release (DR/EC) 5 mg PO ONCE Qty: 4 0RF Rx Instructions: take per colonoscopy instructions No Action citalopram 20 mg tablet 1 tab PO DAILY Label Comments: TAKE 1 TABLET BY MOUTH EVERY DAY Discharge Instructions Additional Instructions: DSU Colonoscopy Post- Op Instructions Instructions for Everyone who is given Anesthesia: For your safety, please do the following for the next twenty-four (24) hours: *Do Not operate a motor vehicle (car, truck, motorcycle, etc.) *Do Not drink alcoholic beverages or use any recreational drugs for the first 24 hours or while taking pain medications. The medications in your body may have a reaction that can be dangerous. *Do Not make any important decisions or sign any important papers. Findings: Normal Follow up: poor prep. Lesion may have been missed. Repeat in 1 years time. 1. No lifting over 20 pounds or strenuous activity for the first 24 hours after your procedure. After 24 hours there are no restrictions on your activity but you may feel fatigued for a few days. 2. After you arrive home you may have a light meal and return to your normal diet as you can tolerate it without feeling sick to your stomach. 3. You may have a bloated, gaseous feeling in your belly (abdomen) after a colonoscopy. Passing gas and belching will help. Walking or lying down on your left side with your knees flexed may relieve the discomfort. Call the office at [phone] (Office) or [phone] (Hospital) right away if you notice any of the following: a.Vomiting of blood or ?coffee ground stools?. b.Rectal bleeding 1Tbsp, blood clots or continuous bleeding. c.Severe belly (abdominal) pain. d.A hard distended belly (abdomen) and an inability to pass gas. 4. Please don?t expect to have a normal BM (bowel movement) for 2-3 days after your procedure. 5. If there are questions regarding the findings of your procedure, please contact your doctor 6. If you are unable to contact your doctor with a problem, contact the hospital at [phone]. 7. Continue all your regular medications unless directed otherwise. I understand the above instructions and have no questions. Signature of Patient or Adult Escort Name of Responsible Adult Escort Signature of Nurse Date/Time Stand Alone Forms: Savi Ortiz (DSU) Activity:: See above Diet:: See above Discharge Orders Discharge Orders: Discharge Order (Routine); Ordered 04/27/22 Ordered By: Veronica Daniels
--- NOTE | 2022-04-27 16:08 | COLE_ITS ---
Colonoscopy Report Date of procedure: 04/28/22 Pre-op diagnosis general: Colorectal cancer screening Post-op diagnosis procedure note: same Surgeon: Veronica Daniels Anesthesia Type: General:No Airway Estimated blood loss (mL): 0 Complications: None Disposition: same day Prep: Miralax/Dulcolax Retraction Time: 10 mins Procedure Description: After informed consent was obtained the patient was taken to the procedure room and placed in a left decubitous position. Monitors were applied and a time out was done. The patients name, date of , procedure, allergies to medications and metal in their body was reviewed. The patient was then sedated. Once sedated and comfortable a rectal exam was done. External exam was normal. Internal exam revealed a normal sphincter tone and no palpable masses. The scope was then introduced and retrofelexed. No internal hemorrhoids were identified. The scope was then advanced to the cecum w/out difficulty. The TI and appendiceal orifice were identified. The prep was BPS 1 in all segments for total of 3. There was thick semi-formed stool covering the colon. There was fibrous material present. Lesions less than 5 mm may easily have been. The colon was irrigated w/ 2 L of saline. The scope was then slowly retracted over 10 minutes back into the rectum. There are no polyps/AVMs/diverticula visualized today. However the prep was incomplete and lesions could easily have been missed. The mucosa is pink and healthy with a normal vascular pattern. The scope was removed and the patient was woken up and taken back to Same day surgery in stable condition. The patient tolerated the procedure well and there were no immediate complic ations. Follow up: The patient should follow up in 1 year, b/c of the poor prep, unless they develop changes in bowel habits or other new gastrointestinal complaints.
[2022-04-28 06:45] VITALS: BP 118/89; PULSE 78; RESP 18; TEMP 36.4; O2SAT 100
[2022-04-28] MEDS: Lidocaine/Prilocaine Cream 5 GM TUBE TP (07:15)
[2022-04-28] MEDS: Lactated Ringers 1,000 ML 80 ML IV (07:28)
--- NOTE | 2022-04-28 07:50 | ANES.PREOP_ITS ---
General Info Date of Service Date Performed: 04/28/22 Height: 5 ft 7 in Weight: 61.8 kg Body Mass Index (BMI): 21.3 Surgical Procedure: Operation Date: 04/28/22 08:20 Proposed Procedure Side Surgeon jessica Daniels, Meds Allergies and Home Medications Allergies Allergy/AdvReac Type Severity Reaction Status Date / Time gabapentin [From Neurontin] Allergy Mild None noted Verified 04/28/22 06:11 on referral nitrofurantoin Allergy Mild None noted Verified 04/28/22 06:11 [From Macrobid] on referral pregabalin [From Lyrica] Allergy Mild none noted Verified 04/28/22 06:11 on referral lactose AdvReac Intermediate Verified 04/28/22 06:11 Methylpenidate Allergy Mild none noted Uncoded 04/28/22 06:11 on referral Home Medication Medication Instructions Recorded citalopram 20 mg tablet 1 tab PO DAILY 04/27/22 Current Visit Medications: Current Medications Generic Name Dose Route Start Last Admin Trade Name Freq PRN Reason Stop Dose Admin Hyoscyamine Sulfate 0.125 mg 04/28/22 08:03 Hyoscyamine 0.125 Mg Sl/Oral/Chew SL DIRECTED PRN Ringer's Solution 1,000 mls @ 80 mls/hr 04/28/22 06:00 04/28/22 07:28 IV 05/27/22 23:59 80 mls/hr INFUSION MARTI Administration IV Miscellaneous Supplies 1 each 04/28/22 06:00 Iv Access IV 05/27/22 23:59 DIRECTED MARTI Lidocaine/Prilocaine 5 gm 04/28/22 08:00 Lidocaine/Prilocaine Cream 5 Gm Tube TP DIRECTED MARTI Lidocaine/Prilocaine 5 gm 04/27/22 17:00 04/28/22 07:15 Lidocaine/Prilocaine Cream 5 Gm Tube TP 1 applic DIRECTED MARTI Administration Ondansetron HCl 4 mg 04/28/22 20:03 Ondansetron 4 Mg/2 Ml Vial IVP Q4H PRN PRN Nausea / Vomiting Sodium Chloride 0 ml 04/28/22 06:00 Normal Saline Flush 10 Ml Syr IV 05/27/22 23:59 PRN PRN Sodium Chloride 0 ml 04/28/22 06:00 Normal Saline 10 Ml Vial IJ 05/27/22 23:59 DIRECTED PRN Sterile Water 0 ml 04/28/22 06:00 Water,Injection,Sterile 10 Ml Vial IJ 05/27/22 23:59 DIRECTED PRN PFSH Active Problems Active Problems: Problem Status Onset Code Right carpal tunnel syndrome 09/11/17 G56.01 Unspecified essential hypertension 12/26/17 I10 Attention-deficit hyperactivity disorder, unspecified type 12/26/17 F90.9 Encounter for screening colonoscopy Z12.11 Depression F32.9 Intention tremor G25.2 Insect bite W57.XXXA Abnormal chest CT R93.89 Chronic headaches R51.9, G89.29 Adjustment disorder with depressed mood F43.21 Urinary incontinence in female R32 Lower urinary tract symptoms R39.9 Rotator cuff tendinitis M75.80 Pulmonary hyperinflation R09.89 Alcohol abuse F10.10 Anxiety F41.9 Pap smear abnormality of cervix with ASCUS favoring benign R87.610 DJD (degenerative joint disease) M19.90 Fibromyalgia M79.7 Well woman exam with routine gynecological exam Z01.419 Medical History Medical History ADD (attention deficit disorder) Carpal tunnel syndrome History of UTI Hypertension Memory loss TMJ (temporomandibular joint disorder) Urinary, incontinence, stress female Warts right knee, cryotherapy done by PCP 12/14/21 Surgical History Surgical History (Updated 04/28/22 @ 06:57 by Colleen Fisher) History of appendectomy History of tubal ligation Tobacco Smoking/Tobacco Use Status: Never Alcohol Alcohol Intake: current Alcohol intake frequency: a few times a week Substance Use Substance use: Never Substance use type: does not use Prental History History 3 Para 3 Hx # Term Pregnancies 3 Multiple births Hx # Pregnancies Ectopic pregnancies AB induced Hx Number of Living Children 3 AB spontaneous Vital Signs and Lab Results Vital Signs Most Recent Vital Signs in EMR: Most Recent Vital Signs Temp Pulse Resp BP Pulse Ox 36.4 C L 78 18 118/89 100 04/28/22 06:45 04/28/22 06:45 04/28/22 06:45 04/28/22 06:45 04/28/22 06:45 Lab Results Blood Type / Crossmatch: No Data to Display Complete Blood Count: No Data to Display Complete Metabolic Panel: No Data to Display Liver Function Panel: 2 No Data to Display Coagulation Panel: No Data to Display Cardiac Panel: No Data to Display Arterial Blood Gas: No Data to Display Venous Blood Gas: No Data to Display Pancreas Panel: No Data to Display Thyroid Panel: No Data to Display Infectious Disease: No Data to Display Blood Cultures: No Data to Display Toxicology Panel: No Data to Display Anesthesia Assessment and Plan Anesthesia History Personal History: No History of Anesthesia Complications Family History: No Family History of Anesthesia Complications Exercise Tolerance Exercise Tolerance: Metabolic Equivalents>4 Pertinent Negatives Pertinent Negatives: No Symptoms of GERD and No History of CVA/TIA Cardiac & Pulmonary Exam Cardiac Exam: Normal S1/S2 Heart Sounds Pulmonary Exam: Clear Bilateral Breath Sounds Implantable Cardiac Device Does patient have a Pacemaker or an ICD?: No Airway Exam Known Difficult Airway: No Mallampati Class: 1 Mouth Opening: Normal (> 3cm) Thyromental Distance: Greater than 3 cm Neck Range of Motion: Full ROM Neck Circumference: Normal Teeth Condition: Normal Dentition ASA Classification ASA Score: ASA 2 Emergency Case?: No NPO Status NPO Status: NPO Clears >2 hours, Solids >8 hours Anesthesia Plan Resuscitation Status: Full Code Anesthesia Technique: General Anesthesia Airway Planned: Natural Airway Monitors Used: Standard Monitors
[2022-04-28 07:52] VITALS: BMI 21.3
[2022-04-28 08:52] VITALS: BP 121/95; PULSE 75; RESP 16; TEMP 36.4; O2SAT 99
--- NOTE | 2022-04-28 08:53 | W.ANESPOSTOP ---
Postoperative Evaluation Date, Time and Location Date Performed: 04/28/22 Time Performed: 08:54 Patient Location: Day Surgery Unit Vital Signs Most Recent Imported Vital Signs: Most Recent Vital Signs Temp Pulse Resp BP Pulse Ox 36.4 C L 78 18 118/89 100 04/28/22 06:45 04/28/22 06:45 04/28/22 06:45 04/28/22 06:45 04/28/22 06:45 Most Recent Manually Entered Vital Signs: Adult Blood Pressure: 121/95 Heart Rate: 71 Respirations: 12 Oxygen Saturation (%): 99 Temperature (C): 36.3 C Pain Score (0-10 Scale): 0 Assessment Mental Status: Awake (Alert & Oriented to Patient Baseline) Airway and Respiratory Function: Patent airway with normal (patient baseline) respiratory exam Cardiovascular Function: Hemodynamically Stable Hydration Status: Adequately Hydrated Nausea & Vomiting: No Nausea or Vomiting Pain: Pt. Denies Any Pain Peripheral Nerve Block: Patient did not receive a nerve block
[2022-04-28 08:55] VITALS: BP 121/95; PULSE 71; RESP 12; TEMPC 36.3; O2SAT 99
[2022-04-28 09:10] VITALS: BP 139/90; PULSE 63; RESP 16; TEMP 36; O2SAT 100
== END 2022-04-28 10:15 | disposition home or self-care (01) ==
PROVIDERS: PCP Internal Medicine; Visit Provider Surgery
PROC: 0DJD8ZZ Inspection of Lower Intestinal Tract, Via Natural or Artificial Opening Endoscopic (ICD-10-PCS; CPT 45378; principal; 2022-04-28 08:15)
DX: Z12.11 Encounter for screening for malignant neoplasm of colon (principal); F10.10 Alcohol abuse, uncomplicated; M79.7 Fibromyalgia; F43.21 Adjustment disorder with depressed mood
CPT/HCPCS: 45378

== ENCOUNTER → 2022-06-02 18:20 | Outpatient (CLI) | payer OTHER, SELFPAY ==
--- NOTE | 2022-06-02 | DI.RAD_ITS ---
Exam(s) XR HIP RT COMPLETE AP PELVIS EXAM: XR HIP RT COMPLETE AP PELVIS CLINICAL HISTORY: Right pain worsening over last several weeks. TECHNIQUE: 2D digital imaging was performed. COMPARISON: CR BILATERAL HIPS ADULT from 10/07/2010 FINDINGS: 3 views No evidence of fracture in the pelvis and hips. No hip joint degenerative changes evident. Bone den sity normal. No osseous lesions. IMPRESSION: No significant osseous findings. DATA REPOSITORY: RADIATION DOSE DELIVERED:
--- NOTE | 2022-06-02 19:08 | DI.VRAD_ITS ---
PROCEDURE INFORMATION: Exam: XR Right Hip Exam date and time: 06/02/2022 6:42 PM Age: 56 years old Clinical indication: Other: Right pain worsening over last several weeks TECHNIQUE: Imaging protocol: Radiologic exam of the Right hip. Views: 2 or 3 views hip with pelvis when performed. COMPARISON: No relevant prior studies available. FINDINGS: Bones/joints: No evidence of fracture. Negative for dislocation. Negative for bony erosion or destructive change. No significant narrowing observed in the hips. Soft tissues: No soft tissue air. No foreign bodies. IMPRESSION: No acute osseous abnormality. If symptoms persist, follow-up imaging is advised. Dictated and Authenticated by: Justin Powell MD. Ordering:CANDELARIO Collier MD
== END ==
PROVIDERS: PCP Internal Medicine; Visit Provider Physician Assistant Medical
DX: M25.551 Pain in right hip (principal)
CPT/HCPCS: 73502

== ENCOUNTER 2022-06-19 12:45 | Day surgery (SDC) | payer OTHER, SELFPAY ==
--- NOTE | 2022-06-19 01:09 | W.PM.DSUDISC ---
Discharge Plan Disposition Patient Disposition: HOME Condition: Good Discharge Details Reason For Visit: EGD Attending Provider: Aron Portillo Primary Care Provider: Anshu Yadav Home Meds and New Rx's Prescriptions: New pantoprazole 40 mg tablet,delayed release (DR/EC) 40 mg PO DAILY Qty: 60 3RF Rx Instructions: take one tablet by mouth in the morning and one tablet by mouth in the evening for 4 weeks, then cut down to one tablet by mouth each day if your symptoms have improved Continued citalopram [Celexa] 20 mg tablet 20 mg PO DAILY Held ibuprofen 200 mg Tablet 400 mg Hold Instructions: Resume on 07/17/22. take only as needed and try to avoid if you are able Discharge Instructions Instructions: Diet for Stomach Ulcers and Gastritis (GEN), GERD (Gastroesophageal Reflux Disease) (DC), Elliott Esophagus (DC) Additional Instructions: 1. If tolerated, consume a soft, low fiber diet for 1-2 days. [address] Do not drive, drink alcohol, operate machinery, make critical decisions, or do activities that require coordination or balance for 24 hours. 3. You may experience a sore throat for 24 to 48 hours. You may use throat lozenges or gargle with warm salt water to relieve the discomfort. 4. Because air was put into your stomach during the procedure, you may experience some belching. 5. Go directly to the emergency room if you notice any of the following: Develop chills (warm to touch), or if you have a thermometer and your temperature is above 101 Difficulty breathing or difficultly swallowing Persistent vomiting Severe abdominal pain, other than gas cramps Severe chest pain Black, tarry stools Any bleeding ? exceeding one tablespoon 6. Call your physician if the site where your intravenous was started becomes red, swollen, painful, and warm to touch. 7. Your physician has reviewed your pre-procedure medications. Please continue to take those medications as previously ordered. You will be given specific information/education regarding any changes to your medications before leaving. Referrals: Aron Portillo MD [ [facility] ST[facility]FF [facility]YSICIAN] - (3-4 weeks for routine follow up) Activity:: Activity as Tolerated Diet:: As Tolerated Discharge Orders Discharge Orders: Discharge Order (Routine); Ordered 06/19/22 Ordered By: Aron Portillo DS: Diagnosis Discharge Diagnosis (1) Gastroesophageal reflux disease: Status: Chronic Asessment and Plan: Take Protonix as prescribed I will contact you with results of the biopsies
--- NOTE | 2022-06-19 01:10 | W.PM.ENDDOP ---
Date of service: 06/19/22 Time of Service: 14:45 Endoscopy Report DATE OF PROCEDURE: 06/19/22 PRE-OP DIAGNOSIS: Dysphagia POST-OP DIAGNOSIS: other (Gastroesophageal reflux disease with Elliott's esophagus) SURGEON: Aron Portillo ANESTHESIA TYPE: General:No Airway ESTIMATED BLOOD LOSS: 15 PATHOLOGY: other (Random biopsies of gastric antrum and body x2, distal esophagus biopsies x4) COMPLICATIONS: None DISPOSITION: same day INDICATIONS: Jewell Garcia is a 56-year-old woman with dysphagia. She is here for diagnostic EGD PROCEDURE START TIME: 14:13 PROCEDURE END TIME: 14:24 FINDINGS: Mild gastritis and Elliott's esophagus at 38 cm PROCEDURE DESCRIPTION: After the initiation of monitored anesthetic care, and with the assistance of a bite block, I advanced a standard gastroscope through the mouth past the hypopharynx and into the esophagus.? Under the direct vision of the scope, I advanced down the esophagus into the stomach.? Once I entered the stomach, I performed a brief inspection, followed by retroflexion towards the gastric cardia.? This appeared normal.? After that, I gently advanced the scope around the incisura angularis and examined the pylorus.? There was mild gastritis of the prepyloric antrum. I did not see any discrete ulcers..? Next, I advanced the scope through the pylorus into the duodenum.? The mucosa was pink and healthy appearing.? There were no abnormalities.? I was able to visualize bile draining into the duodenum through the ampulla Vater. ?Next, I began retracting the endoscope.? Once I was in the stomach, I performed random biopsies of the gastric antrum and the gastric body to evaluate for helical back to pylori..? I then gently desufflated some of the stomach, and withdrew the endoscope into the distal esophagus. The GE junction was at 38 cm, with approximately 1 cm of Elliott's esophagus. I performed four-quadrant biopsies using cold forceps. There was minimal bleeding. ?Finally, I withdrew the scope along the length of the esophagus taking great care to examine the entirety of the mucosa.? I did not appreciate any abnormalities within the main body of the esophagus, or the hypopharynx.
[2022-06-19 13:05] VITALS: BP 156/92; PULSE 81; RESP 18; TEMP 36.7; O2SAT 97
[2022-06-19] MEDS: Lactated Ringers 1,000 ML 80 ML IV (13:30)
--- NOTE | 2022-06-19 13:39 | ANES.PREOP_ITS ---
General Info Date of Service Date Performed: 06/19/22 Height: 5 ft 7 in Weight: 64.4 kg Body Mass Index (BMI): 22.2 Surgical Procedure: Operation Date: 06/19/22 11:35 Proposed Procedure Side Surgeon p Gastroscopy Hallie Johnson MD Meds Allergies and Home Medications Allergies Allergy/AdvReac Type Severity Reaction Status Date / Time nitrofurantoin Allergy Mild None noted Verified 06/19/22 13:09 [From Macrobid] on referral, UNKNOWN lactose AdvReac Intermediate Upset Verified 06/19/22 13:09 stomach gabapentin [From Neurontin] AdvReac Mild It didnt Verified 06/19/22 13:08 work pregabalin [From Lyrica] AdvReac Mild just Verified 06/19/22 13:08 made me feel funny Methylpenidate Allergy Mild none noted Uncoded 06/19/22 13:09 on referral, UNKNOWN Home Medication Medication Instructions Recorded citalopram 20 mg tablet (Celexa) 20 mg PO DAILY 06/13/22 ibuprofen 200 mg tablet 400 mg 06/19/22 Current Visit Medications: Current Medications Generic Name Dose Route Start Last Admin Trade Name Freq PRN Reason Stop Dose Admin Hyoscyamine Sulfate 0.125 mg 06/19/22 01:10 Hyoscyamine 0.125 Mg Sl/Oral/Chew SL DIRECTED PRN Ringer's Solution 1,000 mls @ 80 mls/hr 06/19/22 06:00 06/19/22 13:30 IV 06/19/22 16:00 80 mls/hr INFUSION MARTI Administration IV Miscellaneous Supplies 1 each 06/19/22 06:00 Iv Access IV 06/19/22 16:00 DIRECTED MARTI Ondansetron HCl 4 mg 06/19/22 01:10 Ondansetron 4 Mg/2 Ml Vial IVP Q4H PRN PRN Nausea / Vomiting Sodium Chloride 0 ml 06/19/22 06:00 Normal Saline Flush 10 Ml Syr IV 06/19/22 16:00 PRN PRN Sodium Chloride 0 ml 06/19/22 06:00 Normal Saline 10 Ml Vial IJ 06/19/22 16:00 DIRECTED PRN Sterile Water 0 ml 06/19/22 06:00 Water,Injection,Sterile 10 Ml Vial IJ 06/19/22 16:00 DIRECTED PRN PFSH Active Problems Active Problems: Problem Status Onset Code Right carpal tunnel syndrome 09/11/17 G56.01 Unspecified essential hypertension 12/26/17 I10 Attention-deficit hyperactivity disorder, unspecified type 12/26/17 F90.9 Encounter for screening colonoscopy Z12.11 Depression F32.9 Intention tremor G25.2 Insect bite W57.XXXA Abnormal chest CT R93.89 Chronic headaches R51.9, G89.29 Adjustment disorder with depressed mood F43.21 Urinary incontinence in female R32 Lower urinary tract symptoms R39.9 Rotator cuff tendinitis M75.80 Pulmonary hyperinflation R09.89 Alcohol abuse F10.10 Anxiety F41.9 Pap smear abnormality of cervix with ASCUS favoring benign R87.610 DJD (degenerative joint disease) M19.90 Fibromyalgia M79.7 Well woman exam with routine gynecological exam Z01.419 Medical History Medical History ADD (attention deficit disorder) Carpal tunnel syndrome History of UTI Hypertension Memory loss TMJ (temporomandibular joint disorder) Urinary, incontinence, stress female Warts right knee, cryotherapy done by PCP 12/14/21 Surgical History Surgical History (Updated 06/19/22 @ 13:10 by Anamaria Erickson) History of appendectomy History of carpal tunnel surgery of right wrist History of tubal ligation Hx of lymph node excision Tobacco Smoking/Tobacco Use Status: Never Alcohol Alcohol Intake: current Alcohol intake frequency: a few times a week Alcohol type: beer Substance Use Substance use: Never Substance use type: does not use Details: alcohol: t-2. couple beers Prental History History 3 Para 3 Hx # Term Pregnancies 3 Multiple births Hx # Pregnancies Ectopic pregnancies AB induced Hx Number of Living Children 3 AB spontaneous Vital Signs and Lab Results Vital Signs Most Recent Vital Signs in EMR: Most Recent Vital Signs Temp Pulse Resp BP Pulse Ox 36.7 C 81 18 156/92 H 97 06/19/22 13:05 06/19/22 13:05 06/19/22 13:05 06/19/22 13:05 06/19/22 13:05 Lab Results Blood Type / Crossmatch: No Data to Display Complete Blood Count: No Data to Display Complete Metabolic Panel: No Data to Display Liver Function Panel: 2 No Data to Display Coagulation Panel: No Data to Display Cardiac Panel: No Data to Display Arterial Blood Gas: No Data to Display Venous Blood Gas: No Data to Display Pancreas Panel: No Data to Display Thyroid Panel: No Data to Display Infectious Disease: No Data to Display Blood Cultures: No Data to Display Toxicology Panel: No Data to Display Anesthesia Assessment and Plan Anesthesia History Personal History: No History of Anesthesia Complications Family History: No Family History of Anesthesia Complications Exercise Tolerance Exercise Tolerance: Metabolic Equivalents>4 Pertinent Negatives Pertinent Negatives: No Symptoms of GERD, No Major Cardiovascular Symptoms or Complaints, No Major Pulmonary Symptoms or Complaints and No History of CVA/TIA Cardiac & Pulmonary Exam Cardiac Exam: Normal S1/S2 Heart Sounds Pulmonary Exam: Clear Bilateral Breath Sounds Implantable Cardiac Device Does patient have a Pacemaker or an ICD?: No Airway Exam Known Difficult Airway: No Mallampati Class: 2 Mouth Opening: Normal (> 3cm) Thyromental Distance: Greater than 3 cm Neck Range of Motion: Full ROM Neck Circumference: Normal Teeth Condition: Normal Dentition ASA Classification ASA Score: ASA 2 Emergency Case?: No NPO Status NPO Status: NPO Clears >2 hours, Solids >8 hours Anesthesia Plan Resuscitation Status: Full Code Anesthesia Technique: General Anesthesia Airway Planned: Natural Airway Monitors Used: Standard Monitors Preoperative Comments:: EGD for dysphagia
[2022-06-19 13:41] VITALS: BMI 22.2
--- NOTE | 2022-06-19 14:15 | STOM_PTH ---
PATIENT: Jewell Schmid LOC: [facility] U#:[id number] AGE/SX: 56/F ROOM: RE06/19/[address]: Aron Portillo MD : 1965 BED: DIS: 06/19/2022 SPEC #: [id number] RECD: 06/19/22 17:18 STATUS: ARTIE REQ #: [id number] CHECO: 06/19/22 14:[address]: Aron Portillo DEPT: Surgical Specimen RECD BY: Shirley Matos ENTERED: 06/19/22 17:19 SP TYPE: STOMACH OTHR DR: Anshu Yadav Tissues: 1 - STOMACH BIOPSY 2 - STOMACH BIOPSY 3 - ESOPHAGUS BIOPSY Procedures: GROSS AND MICRO LEVEL 4 Comments: [id number]
[2022-06-19 14:35] VITALS: BP 143/100; PULSE 95; RESP 18; TEMP 36.9; O2SAT 100
[2022-06-19 14:57] VITALS: BP 160/109; PULSE 82; RESP 18; TEMP 36.5; O2SAT 97
--- NOTE | 2022-06-19 15:35 | W.ANESPOSTOP ---
Postoperative Evaluation Date, Time and Location Date Performed: 06/19/22 Time Performed: 14:57 Patient Location: Day Surgery Unit Vital Signs Most Recent Imported Vital Signs: Most Recent Vital Signs Temp Pulse Resp BP Pulse Ox 36.5 C 82 18 160/109 H 97 06/19/22 14:57 06/19/22 14:57 06/19/22 14:57 06/19/22 14:57 06/19/22 14:57 Pain Score Most Recent Pain Score: Most Recent Pain Score Pain Level 0 06/19/22 13:05 Assessment Mental Status: Awake (Alert & Oriented to Patient Baseline) Airway and Respiratory Function: Patent airway with normal (patient baseline) respiratory exam Cardiovascular Function: Hemodynamically Stable Hydration Status: Adequately Hydrated Nausea & Vomiting: No Nausea or Vomiting Pain: Pt. Denies Any Pain Peripheral Nerve Block: Patient did not receive a nerve block
== END 2022-06-19 15:17 | disposition home or self-care (01) ==
PROVIDERS: PCP Internal Medicine; Visit Provider Surgery
PROC: 0DJ68ZZ Inspection of Stomach, Via Natural or Artificial Opening Endoscopic (ICD-10-PCS; CPT 43235; principal; 2022-06-19 11:30)
DX: K22.70 Barrett's esophagus without dysplasia (principal); K21.9 Gastro-esophageal reflux disease without esophagitis; K22.89 Other specified disease of esophagus; K31.89 Other diseases of stomach and duodenum
CPT/HCPCS: 43239; 88305

== ENCOUNTER → 2022-07-31 02:30 | Outpatient (CLI) | payer OTHER, SELFPAY ==
--- NOTE | 2022-07-31 07:00 | DI.MRI_ITS ---
Exam(s) MR UPPER JOINT LT WO EXAM: MR UPPER JOINT LT WO CLINICAL HISTORY: PAIN,mass of lt wrist, r22.32. TECHNIQUE: Multiplanar multisequence MRI was performed. Noncontrast COMPARISON: None. FINDINGS: There is no fracture or contusion pattern. Cystic areas seen in ulnar styloid as well as trapezium. A small amount surrounding fluid. Findings could reflect inflammatory arthritis. There is a superfi cial lobulated fluid collection corresponding to the palpable abnormality which could represent a sma ll synovial cyst or ganglion. There is an additional multiloculated fluid collection seen at the brody tral aspect at the level of the distal radius which also has the appearance of a synovial cyst or gerson glion. No discrete mass is visible. No tendon abnormalities are seen. The carpal tunnel is unremar kable. The triangular fibrocartilage is grossly intact. IMPRESSION: Area of palpable abnormality at the ulnar aspect of the wrist appears to correspond to a small small synovial cyst or ganglion. Similar appearing synovial cyst or ganglion the is seen at the ventral ra dial aspect radial carpal joint. Erosions in the ulnar styloid and trapezium. DATA REPOSITORY:
== END ==
PROVIDERS: PCP Internal Medicine; Visit Provider Student in an Organized Health Care Education/Training Program
DX: R22.32 Localized swelling, mass and lump, left upper limb (principal); M25.532 Pain in left wrist; M71.332 Other bursal cyst, left wrist; M25.832 Other specified joint disorders, left wrist
CPT/HCPCS: 73221

== ENCOUNTER → 2023-12-28 00:10 | Outpatient (CLI) | payer OTHER, SELFPAY ==
--- NOTE | 2023-12-28 | DI.MAMMO_ITS ---
Exam(s) MAMMO SCREENING EXAM: MAMMO SCREENING CLINICAL HISTORY: SCREENING, Z12.31. TECHNIQUE: Bilateral full field digital CC and MLO mammographic images were obtained with 3D tomosyn thesis and utilizing computer aided detection (CAD). COMPARISON: Prior mammograms were reviewed. FINDINGS: There has been no significant change in the appearance and distribution of the fibroglandular tissue. There are no new spiculated masses nor malignant appearing microcalcification groups. There is no significant architectural distortion nor skin thickening-retraction. IMPRESSION: No radiographic evidence of malignancy. BI-RADS Category 1 - Negative Breast Density - Category B - Scattered areas of fibroglandular density Breast density Category C or D implies that the patient has dense breast tissue. Dense breast tissue can make it harder to find cancer on a mammogram. Dense breast tissue is also associated with an incr eased risk of breast cancer. This information about the result of the mammogram report was provided to the patient to raise their awareness. Use this report when you speak with the patient about their risks for breast cancer, which includes their family history. At that time, you may recommend additional screening tests (Ultrasoun d or MRI) as these tests may add significant information. A negative radiographic report should not delay biopsy if a dominant or clinically suspicious mass is present. Up to ten percent of cancers are not identified on mammography. A negative report may reinforce clinical impression. Adenosis and dense breasts may obscure an underlying neoplasm. False positive reports average 6 to 10%. Patient will receive a letter notifying them of these results.
== END ==
PROVIDERS: PCP Internal Medicine; Visit Provider Family Medicine
DX: Z12.31 Encounter for screening mammogram for malignant neoplasm of breast (principal)
CPT/HCPCS: 77063; 77067

== ENCOUNTER 2024-11-03 01:27 | Outpatient (CLI) | payer OTHER, SELFPAY ==
--- NOTE | 2024-11-03 15:24 | DI.RAD_ITS ---
Exam(s) XR HIP RT COMPLETE AP PELVIS EXAM: XR HIP RT COMPLETE AP PELVIS CLINICAL HISTORY: M25.551 Pain in rt hip. TECHNIQUE: 2D digital imaging was performed. Two views COMPARISON: CR,XR XR HIP RT COMPLETE AP PELVIS from 06/02/2022 FINDINGS: BONES: No acute fracture is present. No bony destructive lesion is seen. JOINTS: No dislocation present. The hip joint spaces are maintained. No significant periarticular sp urring. The SI joints and pubic symphysis are unremarkable. SOFT TISSUE: Normal. IMPRESSION: No acute abnormality. DATA REPOSITORY: RADIATION DOSE DELIVERED:
== END 2024-11-03 01:47 ==
PROVIDERS: PCP Family Medicine; Visit Provider Family Medicine
DX: M25.551 Pain in right hip (principal)
CPT/HCPCS: 73502